=== PATIENT | male | born 1945 | race Two or more races ===

== ENCOUNTER 2025-10-03 09:45 | Outpatient (OUT) | payer MEDICARE, SELFPAY ==
--- OUTSIDE RECORDS SUMMARY | 2025-09-24 09:30 | XMS_ITS | Encounter Summary ---
Author Organization [facility] Address [address] [place] [address] Care Team Providers Care Drafter Patent Name Role Phone Tanna Leyva MD Primary Care Provider [phone] Tanna Leyva MD Unavailable Reason for Visit * Rehabilitation - Outpatient (Routine) - AuthorizedSpecialtyDiagnoses / ProceduresReferred By ContactReferred To ContactPhysical Therapy Diagnoses Gait disturbance Procedures OR OFFICE/OUTPATIENT [facility] 60 MINUTES Tanna Leyva MD [address] [place] [address] Phone: tel: fax: Alejandro Branch, PT [address] [place] [address] Phone: tel: fax: Referral IDStatusReasonStart DateExpiration DateVisits RequestedVisits [id number] Specialty Services Required [id number] Encounter Details DateTypeDepartmentCare Team (Latest Contact Info)Svpfktuupvy39/04/2025 9:30 AM ESTTreatment [facility] [place] [address] [place] [address] La Mccarthy PTA General weakness (Primary Dx); Gait disturbance; History of falling Social History Tobacco UseTypesPacks/DayYears UsedDateSmoking Tobacco: NeverSmokeless Tobacco: NeverAlcohol UseStandard Drinks/WeekCommentsNot Currently0 (1 standard drink = 0.6 oz pure alcohol)caffeine intake: 1-2 cups/dayPHQ-2AnswerDate RecordedPatient Health Questionnaire-2 [id number] and Gender InformationValueDate RecordedSex Assigned at BirthNot on fileLegal NpeZsxw5402/02/2023 7:36 PM EDT Gender IdentityNot on fileSexual OrientationNot on filedocumented as of this encounter Progress Notes * La MccarthyYESSENIA - 09/24/2025 9:30 AM EST Images from the original note were not included. Physical Therapy Physical Therapy Treatment Visit Patient Name: Chad Mcmahon Today's Date: 09/24/2025 Encounter Diagnoses Name Primary? General weakness Yes Gait disturbance History of falling Visit number: 38 Supervised time: 59 min Total time: 59 min Time in: 10:23 am Time out: 11:24 am Subjective Chad Mcmahon 80 y.o. male presents to physical therapy w/ chief c/o increased difficulty with all functional mobility and extensive fall history, ~2 falls per pt in the last couple weeks, admits to trying to spread grass seed in yard and using wheel grand ronde tribes/tools both causing falls. I am very familiar with Chad and his family and they have had issues for years helping to keep him safe around the home as he continues to try to do things he should not with age and mobility issues. 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 No injuries. Aggravating Factors: ADLs/self care, trying to do yard work and higher level ADLs, uneven ground. Precautions: Fall risk/history, lack of safety awareness/compliance. Objective Gait: parkinsons like gait, mod to severe shuffling nicolasa, decreased jesus, step height/length nicolasa also lacking TKE in stance nicolasa with slight FW flexed posture, No AD. Has been resistant to suggestive use in the past. Balance: NS on ground ok, EC min sway but up to 30 sec. NS on foam mod to severe sway unable to maintain greater than 10 sec per bout today without UE assist. 30 sec chair rise test= 6 reps TUG= 24 sec without AD, CGA. (At IE) Treatment Interventions Therapeutic Exercise:x 42 min total per ELLA grid, strength, endurance, flexibility demo and verbal cues for correct technique. Gait Training: prn for improved quality and reduced fall risk Neuromuscular re-education: x17 min balance work both static and dynamic as able to help reduce fall risk, CGA for all with gait belt. FW january/ walk Assessment/Plan General weakness, balance issues, impaired gait, decreased awareness of safety/limitations causing increased fall risk with extensive fall history. Unsteady throughout today. Continued good recall of ELLA with min VC for proper execution. Min post sway with foam balance EC. Trial EO on foam today with head turn/nod. No LOB. Pt demo many LOB during side stepping to the R today. Max VC for hips and toes facing forward, very difficult for neuromuscular facilitation side stepping to right. Also initiated multidirectional ambulation throughout clinic including turns and up and over steps, apprehensive and slow with turns but no LOB, CGA. Continued as tolerated. PT Goals: 1) pt will demo improved functional LE strength per 30 sec chair rise test greater than or equal to9 reps with UE assist from chair prn. 2) pt will demo improved functional mobility, gait, balance, decreased fall risk per TUG less than or equal to 14 sec 3) pt will demo at least min improved quality of gait for improved safety and decreased fall risk 4) pt will be ind with HEP for maintenance at DC from PT Cosigned by Alejandro Branch PT at 09/24/2025 12:06 PM EST documented in this encounter Plan of Treatment DateTypeDepartmentCare Team (Latest Contact Info)Nrpoyeqdeyk40/26/2025 10:20 AM ESTOffice Visit [facility] [id number] [place] [address] Tanna Leyva MD [address] [facility] [place] [address] 12/04/2025 10:00 AM ESTOffice Visit [facility] [address] [facility] [place] [phone] Tanna Leyva MD [address] [facility] [place] [address] documented as of this encounter Goals GoalPatient Goal TypeAssociated ProblemsRecent ProgressPatient-Stated?Author Help patient manage antidepressant medication Care PlanPatient on antidepressant monitoring planNoTanna Leyva, MDdocumented as of this encounter Visit Diagnoses Diagnosis General weakness- Primary Other malaise and fatigue Gait disturbance Abnormality of gait History of falling documented in this encounter Additional Health Concerns Active ProblemsNoted DateDiagnosed DatePatient on antidepressant monitoring plan 05/30/2024ssessmentNoted TimePHQ-9 Depression Total Score: 10003/07/2024 10:00 AM EDTdocumented as of this encounter Care Teams Team MemberRelationshipSpecialtyStart DateEnd Date Tanna Leyva MD [address] [facility] [place] [address] PCP - GeneralFamily Medicine03/29/23 Tanna Leyva MD [address] [facility] [place] [address] PCP - [employer]12/22/20documented as of this encounter
--- OUTSIDE RECORDS SUMMARY | 2025-09-30 13:45 | XMS_ITS | Encounter Summary ---
Author Organization [facility] Address [address] [place] [address] Care Team Providers Care Municipal Maintenance Worker Name Role Phone Tanna Leyva MD Primary Care Provider [phone] Tanna Leyva MD Unavailable Encounter Details DateTypeDepartmentCare Team (Latest Contact Info)Jmmsbnvfzgv96/10/2025 1:45 PM ESTAncillary Procedure [facility] [address] [facility] [address] [facility] [place] [address] Injury of left thumb, initial encounter Social History Tobacco UseTypesPacks/DayYears UsedDateSmoking Tobacco: NeverSmokeless Tobacco: NeverAlcohol UseStandard Drinks/WeekCommentsNot Currently0 (1 standard drink = 0.6 oz pure alcohol)caffeine intake: 1-2 cups/dayPHQ-2AnswerDate RecordedPatient Health Questionnaire-2 [id number] and Gender InformationValueDate RecordedSex Assigned at BirthNot on fileLegal EhrJmjk1002/02/2023 7:36 PM EDT Gender IdentityNot on fileSexual OrientationNot on filedocumented as of this encounter Plan of Treatment DateTypeDepartmentCare Team (Latest Contact Info)Wwdvwufxddx31/26/2025 10:20 AM ESTOffice Visit [facility] [address] [facility] [address] Tanna Leyva MD [address] [facility] [address] [place], [place] [id number] 12/04/2025 10:00 AM ESTOffice Visit [facility] [address] [facility] [place] [address] Tanna Leyva MD [address] [facility] [address] [place], [place] [id number] documented as of this encounter Goals GoalPatient Goal TypeAssociated ProblemsRecent ProgressPatient-Stated?Author Help patient manage antidepressant medication Care PlanPatient on antidepressant monitoring Tanna Peña MDdocumented as of this encounter Procedures Procedure NamePriorityDate/TimeAssociated DiagnosisCommentsXR FINGERS 2+ VIEWS FOSYYhicran36/10/2025 3:50 PM EST Injury of left thumb, initial encounter documented in this encounter Results * XR fingers 2+ views left (09/30/2025 3:50 PM EST)Anatomical RegionLaterality ModalityUpper Extremities, FingersLeftRadiographic ImagingSpecimen (Source) Anatomical Location / LateralityCollection Method / VolumeCollection Time Received Time10/01/2025 3:47 PM EST Impressions 10/01/2025 3:50 PM EST Fracture dislocation involving the thumb IP joint as discussed. Possible nondisplaced fracture involving the base of the thumb proximal phalanx as discussed. ELECTRONICALLY SIGNED BY: Douglas Crowder MD Narrative 10/01/2025 3:50 PM EST EXAMINATION/TECHNIQUE: XR FINGERS 2+ VIEWS LEFT HISTORY: Crushing injury of the thumb. 4 x 4 fell on the thumb. COMPARISON: Radiographs 01/02/2020. RESULT: Dislocation at the thumb IP joint with the distal phalanx displaced dorsally with multiple densities near this site suggestive of multiple small fracture fragments. There is also some irregularity involving the base of the thumb proximal phalanx near the MCP joint, possible nondisplaced fracture orcould be chronic from degenerative changes. Advanced degenerative changes at the thumb CMC joint with subchondral sclerosis. Areas of soft tissue edema. Procedure Note Douglas Crowder MD - 10/01/2025 EXAMINATION/TECHNIQUE: XR FINGERS 2+ VIEWS LEFT HISTORY: Crushing injury of the thumb. 4 x 4 fell on the thumb. COMPARISON: Radiographs 01/02/2020. RESULT: Dislocation at the thumb IP joint with the distal phalanx displaceddorsally with multiple densities near this site suggestive of multiplesmall fracture fragments. There is also some irregularity involving thebase of the thumb proximal phalanx near the MCP joint, possiblenondisplaced fracture or could be chronic from degenerative changes.Advanced degenerative changes at the thumb CMC joint with subchondralsclerosis. Areas of soft tissue edema. IMPRESSION: Fracture dislocation involving the thumb IP joint as discussed. Possible nondisplaced fracture involving the base of the thumb proximalphalanx as discussed. ELECTRONICALLY SIGNED BY: Douglas Crowder MD Authorizing ProviderResult TypeResult StatusBreann Majors NPIMG XR PROCEDURES Final Result documented in this encounter Visit Diagnoses Diagnosis Injury of left thumb, initial encounter documented in this encounter Additional Health Concerns Active ProblemsNoted DateDiagnosed DatePatient on antidepressant monitoring plan 4AssessmentNoted TimePHQ-9 Depression Total Score: 10003/07/2024 10:00 AM EDTdocumented as of this encounter Care Teams Team MemberRelationshipSpecialtyStart DateEnd Date aTnna Leyva MD [address] [place] [address] PCP - GeneralFamily Medicine03/29/23 Tanna Leyva MD [address] [place] [address] PCP - [employer]12/22/20documented as of this encounter
--- OUTSIDE RECORDS SUMMARY | 2025-09-30 16:30 | XMS_ITS | Encounter Summary ---
Author Organization [facility] Address [address] [facility] [place] [address] Care Team Providers Care Resource Room Teacher Name Role Phone Tanna Leyva MD Primary Care Provider [phone] Tanna Leyva MD Unavailable Reason for Referral * Consultation (Routine) - AuthorizedSpecialtyDiagnoses / ProceduresReferred By ContactReferred To ContactOrthopaedic Surgery Diagnoses Closed dislocation of left thumb, initial encounter Closed avulsion fracture of phalanx of left thumb, initial encounter Pippa Vincent NP [address] [place] [address] Phone: tel: fax: Marco Antonio Mead MD [facility] Referrals ONLY fax: Referral IDStatusReasonStart DateExpiration DateVisits RequestedVisits [id number] Specialty Services Required Reason for Visit * ReasonCommentsthumb pain Encounter Details DateTypeDepartmentCare Team (Latest Contact Info)Fvdjalhondx11/10/2025 4:30 PM ESTOffice Visit [facility] [address] [place] [address] Pippa Vincent NP [address] [facility] [place] [address] Closed dislocation of left thumb, initial encounter (Primary Dx); Closed avulsion fracture of phalanx of left thumb, initial encounter Social History Tobacco UseTypesPacks/DayYears UsedDateSmoking Tobacco: NeverSmokeless Tobacco: NeverAlcohol UseStandard Drinks/WeekCommentsNot Currently0 (1 standard drink = 0.6 oz pure alcohol)caffeine intake: 1-2 cups/dayPHQ-2AnswerDate RecordedPatient Health Questionnaire-2 [id number] and Gender InformationValueDate RecordedSex Assigned at BirthNot on fileLegal UkgRdhw1402/02/2023 7:36 PM EDT Gender IdentityNot on fileSexual OrientationNot on filedocumented as of this encounter Progress Notes * Pippa Vincent NP - 09/30/2025 4:30 PM ESTAssociated Order(s): Orthopedic Injury Treatment - Fracture Post-Procedure Diagnose(s): Closed dislocation of left thumb, initial encounter Subjective ?Quick Links Last Note in Specialty Snapshot Edit RFV/CC Edit Screenings Current Meds Patient ID: Chad Mcmahon is a 80 y.o. male who presents for thumb pain. HPI History of Present Illness The patient presents for evaluation of a left thumb injury. He sustained an injury to his left thumb while working in his shed, specifically when a 4 x 4 pieceof wood fell on him, causing him to fall and land on his buttocks. He reports no head trauma duringthe incident. He also mentions a previous fall from a ladder, which resulted in right shoulder painthat has since improved. It is noted that he experienced two falls yesterday and one today. A consultation with his passenger coach driver is scheduled for Tuesday due to concerns about his deteriorating balance. Xray of his left thumb has been completed and shows a left thumb dislocation of the distal phalanx and an avulsion fracture. ?Quick Review Review Full History Edit History Meds - Current Medications[1] --- PMH - Seasonal allergies Seizures (HCC) Objective ?Quick Links Add Vitals Timeline (Adult) Labs Imaging Results Review Trend Vitals ?? Avoid pulling in long tables of results. Comment on relevant results to support your medical decision making. There were no vitals taken for this visit. Physical Exam Vitals and nursing note reviewed. Constitutional: Appearance: Normal appearance. HENT: Head: Normocephalic and atraumatic. Cardiovascular: Rate and Rhythm: Normal rate and regular rhythm. Pulses: Normal pulses. Heart sounds: Normal heart sounds. Pulmonary: Effort: Pulmonary effort is normal. No respiratory distress. Breath sounds: Normal breath sounds. No stridor. No wheezing, rhonchi or rales. Musculoskeletal: Left hand: Tenderness and bony tenderness present. Decreased range of motion. Comments: Left thumb swelling and bruising noted, dislocation to left distal phalanx noted. Skin: General: Skin is warm and dry. Neurological: General: No focal deficit present. Mental Status: He is alert and oriented to person, place, and time. Psychiatric: Mood and Affect: Mood normal. Behavior: Behavior normal. Physical Exam Extremities: Good pulses Musculoskeletal: Dislocation and possible fractures of the left thumb. Swelling noted. ?Quick Links Full Problem List Allergy Cardiology Chronic Pain GI Thyroid Assessment & Plan Closed dislocation of left thumb, initial encounter Orders: Ambulatory referral to Orthopaedic Surgery; Future Closed avulsion fracture of phalanx of left thumb, initial encounter Orders: Ambulatory referral to Orthopaedic Surgery; Future Other orders Orthopedic Injury Treatment - Fracture Assessment & Plan 1. Left thumb dislocation: - The x-ray results indicate a dislocation at the proximal end of the left thumb, accompanied by potential fractures. - The thumb is swollen and bruised, and the patient is unable to move it. - A referral to Dr. Green, an orthopedic hand specialist, has been initiated for further evaluationand management. - The patient has been advised to apply ice to the affected area to manage swelling and bruising. Seoa-esc-clydxww analgesics such as Tylenol or ibuprofen can be used for pain management. The thumb should be kept immobilized until the specialist's appointment. If there is no communication from Dr. Green's office within the next few days, the patient should contact our office. PROCEDURE Procedure: Reduction of dislocated thumb completed by Dr. Hilario. - Procedural Discussion: Discussed the need to reduce the dislocated thumb, including the potentialneed for a nerve block. The patient was informed about the follow-up with an orthopedic hand specialist due to possible fractures. - Technique: Dr. Hilario performed the reduction of the dislocated thumb. - Dressing: An Jose wrap and a thumb splint were applied to stabilize the thumb. - Post-Procedural Discussion: The reduction was completed successfully. The patient was advised to ice the area, keep it elevated, and follow up with an orthopedic hand specialist. Orthopedic Injury Treatment - Fracture Date/Time: 09/30/2025 4:00 PM Performed by: Lucho Hilario MD Authorized by: Pippa Vincent NP Consent: Consent obtained: Verbal Consent given by: Patient Risks, benefits, and alternatives were discussed: yes Risks discussed: Pain Injury: Injury location: Finger Finger injury location: L thumb Finger fracture type: proximal phalanx fracture Pre-procedure details: Distal neurologic exam: Weakness Sedation: Sedation type: None Anesthesia: Anesthesia method: None Procedure details: Reduction successful: yes X-ray confirmed reduction: no Immobilization: Thumb splint placed with an jose wrap. Post-procedure details: Distal neurologic exam: Normal Distal perfusion: distal pulses strong Range of motion: normal Procedure completion: Tolerated [1] amiodarone (Pacerone) 200 MG tablet aspirin 81 MG chewable tablet clopidogrel (Plavix) 75 MG tablet divalproex (Depakote) 500 MG EC tablet Docusate Sodium (DSS) 100 MG capsule escitalopram (Lexapro) 20 MG tablet KLOR-CON 10 MEQ ER tablet midodrine (Proamatine) 5 MG tablet PHENobarbital (Luminal) 32.4 MG tablet solifenacin (VESIcare) 10 MG tablet torsemide (Demadex) 10 MG tablet triamcinolone (Kenalog) 0.1 % cream documented in this encounter Plan of Treatment DateTypeDepartmentCare Team (Latest Contact Info)Gytldxxlmmk60/26/2025 10:20 AM ESTOffice Visit [facility] [address] [place] [phone] Tanna Leyva MD [address] [place] [address] 12/04/2025 10:00 AM ESTOffice Visit [address] [place] [address] Tanna Leyva MD [address] [place] [address] NameTypePriorityAssociated DiagnosesOrder ScheduleAmbulatory referral to Orthopaedic SurgeryOutpatient ReferralRoutine Closed dislocation of left thumb, initial encounter Closed avulsion fracture of phalanx of left thumb, initial encounter Expected: 09/30/2025 (Approximate), Expires: 03/30/2026documented as of this encounter Goals GoalPatient Goal TypeAssociated ProblemsRecent ProgressPatient-Stated?Author Help patient manage antidepressant medication Care PlanPatient on antidepressant monitoring Tanna Peña, MDdocumented as of this encounter Procedures Procedure NamePriorityDate/TimeAssociated DiagnosisCommentsPR CLTX PHLNGL FX PROX/MIDDLE PX/F/T W/O MANJ OVGgqscsa17/10/2025 4:00 PM EST Closed dislocation of left thumb, initial encounter documented in this encounter Results * MS CLTX PHLNGL FX PROX/MIDDLE PX/F/T W/O MANJ EA (09/30/2025 4:00 PM EST) Pippa Padilla NP - 09/30/2025 4:00 PM EST Pippa Vincent NP 09/30/2025 5:05 PM Orthopedic Injury Treatment - Fracture Date/Time: 09/30/2025 4:00 PM Performed by: Lucho Hilario MD Authorized by: Pippa Vincent NP ?? Consent: ??Consent obtained: ??Verbal ??Consent given by: ??Patient ??Risks, benefits, and alternatives were discussed: yes ?Risks discussed: ??Pain Injury: ??Injury location: ??Finger ??Finger injury location: ??L thumb ??Finger fracture type: proximal phalanx fracture ?? Pre-procedure details: ??Distal neurologic exam: ??Weakness Sedation: ??Sedation type: ??None Anesthesia: ??Anesthesia method: ??None Procedure details: ??Reduction successful: yes ?X-ray confirmed reduction: no ?Immobilization: Thumb splint placed with an jose wrap. Post-procedure details: ??Distal neurologic exam: ??Normal ??Distal perfusion: distal pulses strong ?Range of motion: normal ?Procedure completion: ??Tolerated Authorizing ProviderResult TypeResult StatusBreann Majors NPIN CLINIC/BEDSIDE ORDERABLESFinal Result documented in this encounter Visit Diagnoses Diagnosis Closed dislocation of left thumb, initial encounter- Primary Closed avulsion fracture of phalanx of left thumb, initial encounter documented in this encounter Additional Health Concerns Active ProblemsNoted DateDiagnosed DatePatient on antidepressant monitoring plan 05/30/2024ssessmentNoted TimePHQ-9 Depression Total Score: 10003/07/2024 10:00 AM EDTdocumented as of this encounter Care Teams Team MemberRelationshipSpecialtyStart DateEnd Date Tanna Leyva MD [address] [place], [place] [id number] PCP - GeneralFavtly Medicine03/29/23 Tanna Leyva MD [address] [place] [address] PCP - [employer]12/22/20documented as of this encounter
--- OUTSIDE RECORDS SUMMARY | 2025-10-02 14:40 | XMS_ITS | Encounter Summary ---
Author Organization [facility] Address [address] [place] [address] Phone Care Team Providers Care Associate Data Scientist Name Role Phone Tanna Leyva MD Primary Care Provider [phone]- [phone] Reason for Referral * Consultation (Routine) - AuthorizedSpecialtyDiagnoses / ProceduresReferred By ContactReferred To ContactCardiology Diagnoses Persistent atrial fibrillation (Multi) Procedures Follow Up In Cardiology Tessy Sequeira MD [address] [place] [address] 2, [address] [address] Phone: tel: fax: Tessy Sequeira MD 703 [facility] 2, [address] [address] Phone: tel: fax: Referral IDStatusReasonStart DateExpiration DateVisits RequestedVisits [id number]/12/202511/12/202611 * Cardiovascular (Routine) - AuthorizedSpecialtyDiagnoses / ProceduresReferred By ContactReferred To Contact Diagnoses Persistent atrial fibrillation (Multi) Procedures ECG 12 Lead Tessy Sequeira MD [address] [place] [address] 2, [address] [address] Phone: tel: fax: Referral IDStatusReasonStart DateExpiration DateVisits RequestedVisits [id number]/12/202511/12/202611 * PFT (Routine) - Pending ReviewSpecialtyDiagnoses / ProceduresReferred By ContactReferred To Contact Diagnoses Persistent atrial fibrillation (Multi) High risk medication use Procedures Complete Pulmonary Function Test (Spirometry/DLCO/Lung Volumes) Tessy Sequeira MD [address] [facility] 2, [address] [place] [address] Phone: tel: fax: Referral IDStatus[facility] DateExpiration DateVisits RequestedVisits [id number] * Imaging (Routine) - AuthorizedSpecialtyDiagnoses / ProceduresReferred By ContactReferred To ContactRadiology Diagnoses Persistent atrial fibrillation (Multi) High risk medication use Procedures XR chest 2 views Tessy Sequeira MD [address] [facility] [facility] 2, [address] [address] Phone: tel: fax: Referral IDStatus[facility] DateExpiration DateVisits RequestedVisits [id number] Perform Procedure Reason for Visit * ReasonCommentsFollow-up6 month Follow up for Atrial Fibrillation * Consultation (Routine) - AuthorizedSpecialtyDiagnoses / ProceduresReferred By ContactReferred To ContactCardiology Diagnoses Presence of Watchman left atrial appendage closure device Procedures Follow Up In Cardiology Tessy Sequeira MD [address] [facility] 2, [address] [address] Phone: tel: fax: Tessy Sequeira MD [address] [facility] 2, [address] [address] Phone: tel: fax: Referral IDStatusReasonStart DateExpiration DateVisits RequestedVisits [id number]/24/20253/ Encounter Details DateTypeDepartmentCare Team (Latest Contact Info)Gmxaxbqjfqn68/12/2025 2:40 PM ESTOffice Visit [facility] 703 [facility] [address] [place] [address] Tessy Sequeira MD 703 [facility] 2, [address] [place] [address] Presence of Watchman left atrial appendage closure device; Persistent atrial fibrillation (Multi); High risk medication use; Stage 3b chronic kidney disease (Multi); Never smoked any substance; BMI 24.0-24.9, adult; At risk for falls Discharge Disposition: Home Social History Tobacco UseTypesPacks/DayYears UsedDateSmoking Tobacco: NeverSmokeless Tobacco: NeverAlcohol UseStandard Drinks/WeekCommentsNever0 (1 standard drink = 0.6 oz pure alcohol)Sex and Gender InformationValueDate RecordedSex Assigned at Not on fileLegal BqlLvxx7612/02/2022 9:24 AM ESTGender IdentityNot on fileSexual OrientationNot on filedocumented as of this encounter Last Filed Vital Signs Vital SignReadingTime TakenCommentsBlood Ekwgvlaw482/ 2:45 PM EST Cmhnp079410/02/2025 2:45 PM ESTTemperature--Respiratory Rate--Oxygen Saturation-- Inhaled Oxygen Concentration--Pnwgya55.7 kg (189 lb)10/02/2025 2:45 PM ESTHeight 188 cm (6' 2 )10/02/2025 2:45 PM ESTBody Mass Index24.27112/02/2024 2:45 PM EST documented in this encounter Functional Status * BPAnswerDate of AydzadzbkrGyhfvs319/8210/02/2025 2:45 PM Angie Sam CMA * PulseAnswerDate of JshevxqqzmOtphqt2759/12/2025 2:45 PM Angie Sam CMA * Communicable Disease ScreeningQuestionAnswerDate of AssessmentAuthorDo you have any of the following new or worsening symptoms?None of these10/02/2025 2:32 PM Tayler Walton documented as of this encounter Patient Instructions * Patient Instructions* Nadya Cotton LPN - 10/02/2025 2:40 PM EST Please bring all medicines, vitamins, and herbal supplements with you when you come to the office. Prescriptions will not be filled unless you are compliant with your follow up appointments or have a follow up appointment scheduled as per instruction of your physician. Refills should be requested at the time of your visit. Amiodarone follow up per routine * Attachments The following attachments cannot be sent through Care Everywhere. * Preventing Falls ED ([place]) documented in this encounter Progress Notes * Tessy Sequeira MD - 10/02/2025 2:40 PM EST HPI Patient is in the office for follow-up for paroxysmal atrial fibrillation which has been controlledon amiodarone, he is status post watchman's device implantation. He came with his son-in-law. He continues to have frequent falls at home and he has dementia and it is hard to convince him not to do things secondary to his falling down. Fortunately there have been no major injuries. He had his PFT and chest x-ray back in October 2024 which were normal. He had lab data 3 months ago that revealed stage IIIB chronic kidney disease. EKG today revealed normal sinus rhythm and normal ECG, cardiac and pulm examinations were normal. Assessment/recommendations: 1-paroxysmal atrial fibrillation, currently on amiodarone and in sinus rhythm . Amiodarone surveillance testing have demonstrated no toxicity and will continue to do testing as per protocol. Reviewedwith the patient and his family his last PFT and chest x-ray from last October which came back normal. 2-status post watchman's device implantation March 2024 at [facility], continue aspirin 3-recurrent falls due to imbalance and orthostatic hypotension, encouraged the patient minimize activities that place him at risk. He is following with neurology. 4-history of lower extremity edema on torsemide and potassium. stable 5-history of orthostatic hypotension, currently on midodrine and his blood pressure is acceptable. No changes are needed 6-mild case of dementia but stable. 7-nuclear stress test 2021 in [place] was normal. 8- stage IIIb chronic kidney disease, no progression has been noticed, last creatinine 1.6 mg/dL with GFR 42 mL/min as of May 2025. 10-high risk medication with amiodarone therapy. Surveillance testing is being ordered. ROS Review of system was remarkable for imbalance and frequent falls Vitals: 10/02/25 1445 BP: 118/82 BP Location: Left arm Patient Position: Sitting Pulse: 63 Weight: 85.7 kg (189 lb) Height: 1.88 m (6' 2 ) EKG done in office today Objective Physical Exam Constitutional: Appearance: Normal appearance. HENT: Nose: Nose normal. Neck: Vascular: No carotid bruit. Cardiovascular: Rate and Rhythm: Normal rate. Pulses: Normal pulses. Heart sounds: Normal heart sounds. Pulmonary: Effort: Pulmonary effort is normal. Abdominal: General: Bowel sounds are normal. Palpations: Abdomen is soft. Musculoskeletal: General: Normal range of motion. Cervical back: Normal range of motion. Right lower leg: No edema. Left lower leg: No edema. Skin: General: Skin is warm and dry. Neurological: General: No focal deficit present. Mental Status: He is alert. Psychiatric: Mood and Affect: Mood normal. Behavior: Behavior normal. Thought Content: Thought content normal. Judgment: Judgment normal. Allergies Oxybutynin Current Medications Current Outpatient Medications Medication Instructions amiodarone (PACERONE) 100 mg, oral, Daily aspirin 81 mg, oral, Daily divalproex (DEPAKOTE) 500 mg, 5 times daily midodrine (PROAMATINE) 5 mg, Every 12 hours PHENobarbital (LUMINAL) 32.4 mg, 3 times daily solifenacin (VESICARE) 10 mg, Daily torsemide (DEMADEX) 10 mg, oral, Daily Assessment/Plan 1. Presence of Watchman left atrial appendage closure device Follow Up In Cardiology 2. Persistent atrial fibrillation (Multi) Aspartate Aminotransferase Basic Metabolic Panel Thyroid Stimulating Hormone XR chest 2 views Complete Pulmonary Function Test (Spirometry/DLCO/Lung Volumes) ECG 12 Lead Follow Up In Cardiology Aspartate Aminotransferase Basic Metabolic Panel Thyroid Stimulating Hormone 3. High risk medication use Aspartate Aminotransferase Basic Metabolic Panel Thyroid Stimulating Hormone XR chest 2 views Complete Pulmonary Function Test (Spirometry/DLCO/Lung Volumes) Aspartate Aminotransferase Basic Metabolic Panel Thyroid Stimulating Hormone 4. Stage 3b chronic kidney disease (Multi) 5. Never smoked any substance 6. BMI 24.0-24.9, adult 7. At risk for falls Scribe Attestation By signing my name below, I Nadya HathawayTrina FIGUEROA , Scribe attest that this documentation has been prepared under the direction and in the presence of Tessy Sequeira MD. Provider Attestation - Scribe documentation All medical record entries made by the Scribe were at my direction and personally dictated by me. Ihave reviewed the chart and agree that the record accurately reflects my personal performance of the history, physical exam, discussion and plan. documented in this encounter Plan of Treatment DateTypeDepartmentCare Team (Latest Contact Info)Brfxlqcgplb51/17/2026 3:10 PM EDTOffice Visit [facility] [address] [phone] Tessy Sequeira MD 703 [facility] 2, [address] [address] NameTypePriorityAssociated DiagnosesOrder ScheduleAspartate AminotransferaseLab Routine Persistent atrial fibrillation (Multi) High risk medication use Expected: 11/01/2025, Expires: 01/30/2026asic Metabolic PanelLabRoutine Persistent atrial fibrillation (Multi) High risk medication use Expected: 11/01/2025, Expires: 01/30/2026Thyroid Stimulating HormoneLabRoutine Persistent atrial fibrillation (Multi) High risk medication use Expected: 11/01/2025, Expires: 01/30/2026XR chest 2 viewsImagingRoutine Persistent atrial fibrillation (Multi) High risk medication use Expected: 11/01/2025 (Approximate), Expires: 10/02/2026omplete Pulmonary Function Test (Spirometry/DLCO/Lung Volumes)PFTRoutine Persistent atrial fibrillation (Multi) High risk medication use Expected: 11/01/2025 (Approximate), Expires: 10/02/2026documented as of this encounter Procedures Procedure NamePriorityDate/TimeAssociated DiagnosisCommentsECG 12-LEADRoutine 10/02/2025 2:40 PM EST Persistent atrial fibrillation (Multi) documented in this encounter Results * ECG 12 Lead (10/02/2025 2:40 PM EST)Specimen (Source)Anatomical Location / LateralityCollection Method / VolumeCollection TimeReceived Time Narrative CPACS - 10/02/2025 3:01 PM EST Normal sinus rhythm, normal ECG Authorizing ProviderResult TypeResult StatusTessy Sequeira MDECG ORDERABLES Final ResultPerforming OrganizationAddressCity/State/ZIP CodePhone Number CPACS documented in this encounter Visit Diagnoses Diagnosis Presence of Watchman left atrial appendage closure device Persistent atrial fibrillation (Multi) Atrial fibrillation High risk medication use Stage 3b chronic kidney disease (Multi) Never smoked any substance BMI 24.0-24.9, adult At risk for falls Personal history of fall documented in this encounter Additional Health Concerns AssessmentNoted TimeA fall risk assessment has been completed for the patient 10/02/2025 2:46 PM ESTdocumented as of this encounter Care Teams Team MemberRelationshipSpecialtyStart DateEnd Date Tanna Leyva MD [address] [place] [address] PCP - GeneralFamily Medicine07/05/24documented as of this encounter
--- OUTSIDE RECORDS SUMMARY | 2025-10-02 14:40 | XMS_ITS | Encounter Summary ---
Author Organization [facility] Address [address] [place] [address] Phone Care Team Providers Care Equipment Specialist Name Role Phone Tanna Leyva MD Primary Care Provider [phone]- [phone] Reason for Referral * Consultation (Routine) - AuthorizedSpecialtyDiagnoses / ProceduresReferred By ContactReferred To ContactCardiology Diagnoses Persistent atrial fibrillation (Multi) Procedures Follow Up In Cardiology Tessy Sequeira MD [address] [place] [address] 2, [address] [address] Phone: tel: fax: Tessy Sequeira MD 703 [facility] 2, [address] [address] Phone: tel: fax: Referral IDStatusReasonStart DateExpiration DateVisits RequestedVisits [id number]/12/202511/12/202611 * Cardiovascular (Routine) - AuthorizedSpecialtyDiagnoses / ProceduresReferred By ContactReferred To Contact Diagnoses Persistent atrial fibrillation (Multi) Procedures ECG 12 Lead Tessy Sequeira MD [address] [place] [address] [address], [address] [address] Phone: tel: fax: Referral IDStatusReasonStart DateExpiration DateVisits RequestedVisits [id number]/12/202511/12/202611 * PFT (Routine) - Pending ReviewSpecialtyDiagnoses / ProceduresReferred By ContactReferred To Contact Diagnoses Persistent atrial fibrillation (Multi) High risk medication use Procedures Complete Pulmonary Function Test (Spirometry/DLCO/Lung Volumes) Tessy Sequeira MD [address] [facility] 2, [address] [place] [address] Phone: tel: fax: [facility]Status[facility] DateExpiration DateVisits RequestedVisits [id number] * Imaging (Routine) - AuthorizedSpecialtyDiagnoses / ProceduresReferred By ContactReferred To ContactRadiology Diagnoses Persistent atrial fibrillation (Multi) High risk medication use Procedures XR chest 2 views Tessy Sequeira MD [address] [facility] 2, [address] [address] Phone: tel: fax: Referral IDStatus[facility] DateExpiration DateVisits RequestedVisits [id number] Perform Procedure Reason for Visit * ReasonCommentsFollow-up6 month Follow up for Atrial Fibrillation * Consultation (Routine) - AuthorizedSpecialtyDiagnoses / ProceduresReferred By ContactReferred To ContactCardiology Diagnoses Presence of Watchman left atrial appendage closure device Procedures Follow Up In Cardiology Tessy Sequeira MD [address] 2, [address] [address] Phone: tel: fax: Tessy Sequeira MD [address] [facility] 2, [address] [address] Phone: tel: fax: Referral IDStatusReasonStart DateExpiration DateVisits RequestedVisits [id number]/24/20253/ Encounter Details DateTypeDepartmentCare Team (Latest Contact Info)Tqjgissohkg55/12/2025 2:40 PM ESTOffice Visit [facility] 703 [facility] [address] [place] [address] Tessy Sequeira MD 703 [facility] 2, [address] [place] [address] Presence of Watchman left atrial appendage closure [...] InformationValueDate RecordedSex Assigned at Not on fileLegal AzjSvjn1212/02/2022 9:24 AM ESTGender IdentityNot on fileSexual OrientationNot on filedocumented as of this encounter Last Filed Vital Signs Vital SignReadingTime TakenCommentsBlood Szngepbd720/ 2:45 PM EST Yfmtu966110/02/2025 2:45 PM ESTTemperature--Respiratory Rate--Oxygen Saturation-- Inhaled Oxygen Concentration--Ddlwmp95.7 kg (189 lb)10/02/2025 2:45 PM ESTHeight 188 cm (6' 2 )10/02/2025 2:45 PM ESTBody Mass Index24.27112/02/2024 2:45 PM EST documented in this encounter Functional Status * BPAnswerDate of IvfkfrsgymFblwsl431/8210/02/2025 2:45 PM Angie Sam CMA * PulseAnswerDate of HvyggqamojLmgyps6327/12/2025 2:45 PM Angie Sam CMA * Communicable [...] through Care Everywhere. * Preventing Falls ED ([place]) documented in this encounter Progress Notes * [...] post watchman's device implantation March 2024 at [facility], continue aspirin 3-recurrent falls due to imbalance and orthostatic hypotension, encouraged the patient minimize activities that place him at risk. He is following with neurology. 4-history of lower extremity edema on torsemide and potassium. stable 5-history of orthostatic hypotension, currently on midodrine and his blood pressure is acceptable. No changes are needed 6-mild case of dementia but stable. 7-nuclear stress test 2021 in [place] was normal. 8- stage IIIb chronic kidney [...] Plan of Treatment DateTypeDepartmentCare Team (Latest Contact Info)Abofyvyfdbo03/17/2026 3:10 PM EDTOffice Visit [facility] [address] [phone] Tessy Sequeira MD 703 [facility] 2, [address] [address] NameTypePriorityAssociated DiagnosesOrder ScheduleAspartate AminotransferaseLab Routine [...] DateEnd Date Tanna Leyva MD [address] [place] [address] PCP - GeneralFamily Medicine07/05/24documented as of this encounter
--- NOTE | 2025-10-03 | XR_ITS ---
[facility] [place] [id number] Patient Name: KALANI NO MRN: [id number] date: 1945 Sex: M Assigned Patient Location: [facility] Current Patient Location: [facility] Accession/Order Number: [id number] Exam Date: 10/03/2025 09:50 Report Date: 10/03/2025 10:40 At the request of: YONAS BURNS DO Procedure: XR hand LT min 3V LEFT HAND - 3 views CLINICAL DATA: Follow-up after reduction of left thumb dislocation COMPARISON: None AP, lateral and oblique views were obtained. There is a splint around the thumb. The bony structures are osteopenic. Bony ossicles are present around the distal interphalangeal joint of the thumb. Degenerative changes favored. A nondisplaced intra-articular fracture is not excluded at the base of the proximal phalanx of the thumb. There is also minor degenerative change at that site and moderate at the first carpal metacarpal joint. There are no significant soft tissue abnormalities. XR/XR hand LT min 3V IMPRESSION: OSTEOPENIA. BONY CHANGES AT THE THUMB, DESCRIBED. THERE ARE NO PRIORS FOR CORRELATION. Impression dictated by: Kiana Alberto M.D. 10/03/2025 10:40 AM Dictation Location: [place] [address] Electronically authenticated by: [id number] Y Date: 10/03/2025 10:40
--- OUTSIDE RECORDS SUMMARY | 2025-10-03 08:02 | XMS_ITS | Clinical Summary ---
Author Organization [facility] Address [address] [place] [address] Care Team Providers Care Bite Block Maker Name Role Phone Unavailable Primary Care Provider Unavailabl e Social History Tobacco UseTypesPacks/DayYears UsedDateSmoking Tobacco: Never AssessedUT Safety & EnvironmentAnswerDate RecordedFear of Current or Ex-PartnerNot on file 01/12/2024Emotionally AbusedNot on file01/12/2024hysically AbusedNot on file 01/12/2024Sexually AbusedNot on file01/12/2024hysically or Sexually AbusedNot on file01/12/2024Sex and Gender InformationValueDate RecordedSex Assigned at BirthNot on fileLegal VpmBaru1107/06/2022 11:39 AM EDTGender IdentityNot on file Sexual OrientationNot on file Plan of Treatment Not on file
--- OUTSIDE RECORDS SUMMARY | 2025-10-03 08:02 | XMS_ITS | Clinical Summary ---
Author Organization [facility] Address [address] [place] [address] Phone Care Team Providers Care Purchasing Internship Name Role Phone Tanna Leyva MD Primary Care Provider [phone] Allergies Active AllergyReactionsCriticalityNoted VysvRugguidyJueyasuwoqXhudIqb47/24/2023 Medications MedicationSigDispense QuantityRefillsLast FilledStart DateEnd DateStatus midodrine (Proamatine) 5 mg tablet Take 1 tablet (5 mg) by mouth every 12 hours.07/23/2023ctive PHENobarbitaL (Luminal) 32.4 mg tablet Take 1 tablet (32.4 mg) by mouth 3 times a day.09/21/2023ctive solifenacin (VESIcare) 10 mg tablet Take 1 tablet (10 mg) by mouth once daily.08/20/2023ctive aspirin 81 mg chewable tablet Indications:Presence of Watchman left atrial appendage closure deviceChew 1 tablet (81 mg) once daily. 90 tablet 4Active torsemide (Demadex) 10 mg tablet Indications:Paroxysmal atrial fibrillation (Multi)TAKE 1 TABLET BY MOUTH EVERY DAY 90 tablet 5Active divalproex (Depakote) 500 mg EC tablet Take 1 tablet (500 mg) by mouth 5 times a day. Do not crush, chew, or split. Active amiodarone (Pacerone) 200 mg tablet Indications:Atrial fibrillation, unspecified type (Multi)Take 0.5 tablets (100 mg) by mouth once daily. 45 tablet 5Active escitalopram (Lexapro) 20 mg tablet Take 1.5 tablets (30 mg) by mouth once daily.Discontinued (Therapy completed) potassium chloride CR 10 mEq ER tablet Take 1 tablet (10 mEq) by mouth once daily. Do not crush, chew, or split. 10/02/2025Discontinued(Therapy completed) Active Problems ProblemNoted DateDiagnosed DateStage 3b chronic kidney qrctmfn4910/02/2025MI 24.0-24.9, adult07/05/2024Never smoked any fzxxkpzes17/15/2024resence of Watchman left atrial appendage closure pzektb4603/22/2024-fib12/27/2023Sinus /06/8909Leyqhpjxvdx92/06/2024High risk medication use12/27/2023t risk for falls10/14/2023 Resolved Problems ProblemNoted DateDiagnosed DateResolved DateAtrial fibrillation, unspecified typehronic atrial mwgapjazijeu05 Encounters DateTypeDepartmentCare YxufNsjlkklxyvk12/12/2025 2:40 PM ESTOffice Visit [address] [phone] Tessy Sequeira MD Presence of Watchman left atrial appendage closure device; Persistent atrial fibrillation (Multi); High risk medication use; Stage 3b chronic kidney disease (Multi); Never smoked any substance; BMI 24.0-24.9, adult; At risk for falls Discharge Disposition: Home10/02/20250621Lrdkrg67/09/2025Refill [address] [phone] Tessy Sequeira MD Atrial fibrillation, unspecified type (Multi)from Last 3 Months Immunizations ImmunizationAdministration DatesNext DueFlu vaccine, quadrivalent, high-dose, preservative free, age 65y+ (FLUZONE)08/14/2025,10/28/2023Flu vaccine, trivalent, preservative free, HIGH-DOSE, age 65y+ (Fluzone)09/25/2024,10/28/2023 ,10/14/2020,10/30/2019,08/31/2018,12/19/2017Influenza, Potaywgdsuh14/12/2015 Influenza, intradermal, quadrivalent, preservative free10/02/2015Influenza, seasonal, zsqiljntvo85/14/2013Pneumococcal Conjugate PCV 7112/17/2011Pneumococcal conjugate vaccine, 13-valent (PREVNAR 13)04/08/2016Pneumococcal polysaccharide vaccine, 23-valent, age 2 years and older (PNEUMOVAX 23)10/17/2012,11/21/2011 Tdap vaccine, age 7 year and older (BOOSTRIX, ADACEL)05/25/2023,06/01/2017 Family History Medical HistoryRelationNameCommentsHeart diseaseBrotherHeart attackFatherHeart diseaseFathercongenital abnFathermalignant neoplasmFatherRelationNameStatus CommentsBrotherFather Social History Tobacco UseTypesPacks/DayYears UsedDateSmoking Tobacco: NeverSmokeless Tobacco: Never Tobacco Cessation:Counseling Given: Not Answered Alcohol UseStandard Drinks/WeekCommentsNever0 (1 standard drink = 0.6 oz pure alcohol)Sex and Gender InformationValueDate RecordedSex Assigned at BirthNot on fileLegal OqrGzrf5812/02/2022 9:24 AM ESTGender IdentityNot on fileSexual OrientationNot on file Last Filed Vital Signs Vital SignReadingTime TakenCommentsBlood Kcpcddvt315/8210/02/2025 2:45 PM EST Khhho135310/02/2025 2:45 PM ESTTemperature--Respiratory Nfkf918903/23/2024 9:57 AM EDTOxygen Fihjnkygcf85%03/23/2024 9:57 AM EDTInhaled Oxygen Concentration-- Smaoxp25.7 kg (189 lb)10/02/2025 2:45 PM PYOVaxcbj340 cm (6' 2 )10/02/2025 2:45 PM ESTBody Mass Index24.27112/02/2024 2:45 PM EST Plan of Treatment DateTypeDepartmentCare Team (Latest Contact Info)Rhkzgxyqxib42/17/2026 3:10 PM EDTOffice Visit [facility] [address] [facility] [address] [place] [address] Tessy Sequeira MD [address] [facility] [address] [place] [address] Health MaintenanceDue DateLast DoneCommentsLipid Panel3CKD: Urine Protein Yosqttsfr12/17/1962Zoster Vaccines (1 of 2)2RSV High Risk: (Elderly (60+) or Population) (1 - 1-dose 75+ series)2018Diabetes Gculnxqlh43/26/376367/TSH Level504/4COVID-19 Vaccine ( season)/08/2021, 01/21/2021, 12/24/2020Medicare Annual Wellness Visit (AWV)603/, 03/07/2024, 3DTaP/Tdap/Td Vaccines (3 - Td or Tdap)/03/2023, 06/01/2017Pneumococcal Vaccine Ycxsctoxd84/19/2016, 10/17/2012, 10/17/2012, Additional history existsWelcome to Medicare UosmsQbjyjktzoqyl25/20/2025, 03/07/2024, 01/27/2023Influenza Vaccine Sgoimiftg37/24/2025, 09/25/2024, 10/28/2023, Additional history existsHIB VaccinesAged OutNo longer eligible based on patient's age to complete this topic HPV VaccinesAged OutNo longer eligible based on patient's age to complete this topicHepatitis A VaccinesAged OutNo longer eligible based on patient's age to complete this topicHepatitis B VaccinesAged OutNo longer eligible based on patient's age to complete this topicIPV VaccinesAged OutNo longer eligible based on patient's age to complete this topicMeningococcal VaccineAged OutNo longer eligible based on patient's age to complete this topicRotavirus VaccinesAged Out No longer eligible based on patient's age to complete this topic Medical Devices ImplantedTypeAreaManufacturerDevice IdentifierShelf Expiration DateModel / Serial / LotDevice, Closure, 24mm Watchman Flx Laac - [id number] Implanted:Qty: 1 on 03/23/2024 by [facility]Other Cardiac ImplantN/A: Franchesca [id number] 01/11/[id number] / / [id number] Procedures Procedure NamePriorityDate/TimeAssociated DiagnosisCommentsECG 12-LEADRoutine 10/02/2025 2:40 PM EST Persistent atrial fibrillation (Multi) BASIC METABOLIC THXXUIkdcpmc04/26/2024 11:58 AM EDT Paroxysmal atrial fibrillation (Multi) High risk medication use ENKRlfuwvj86/26/2024 11:58 AM EDT Paroxysmal atrial fibrillation (Multi) High risk medication use from Last 3 Months or Most Recently Relevant to Health Maintenance Results * ECG 12 Lead (10/02/2025 2:40 PM EST)Specimen (Source)Anatomical Location / LateralityCollection Method / VolumeCollection TimeReceived Time Narrative CPACS - 10/02/2025 3:01 PM EST Normal sinus rhythm, normal ECG Authorizing ProviderResult TypeResult StatusTessy Sequeira MDECG ORDERABLES Final ResultPerforming OrganizationAddressCity/State/ZIP CodePhone Number [facility] * Thyroid Stimulating Hormone (03/16/2024 11:58 AM EDT)ComponentValueRef Range Test MethodAnalysis TimePerformed AtPathologist SignatureThyroid Stimulating Hormone3.070.44 - 3.98 mIU/L LAB IMMUNOASSAY METHOD 03/16/2024 5:[address] [facility] LABSpecimen (Source)Anatomical Location / Laterality Collection Method / VolumeCollection TimeReceived TimeBloodVenous blood specimen / UnknownVenipuncture / Aprvcih8303/16/2024 11:58 AM EDT03/16/2024 11:58 AM EDT Narrative [facility] - 03/16/2024 5:14 PM EDT TSH testing is performed using different testing methodology at [facility] than at other [facility]. Direct result comparisons should only be made within the same method. Authorizing ProviderResult TypeResult StatusTessy FIGUEROA BLOOD ORDERABLESFinal ResultPerforming OrganizationAddressCity/State/ZIP CodePhone Number [facility] [address] [facility] [place] [address] [place] [phone] * Basic Metabolic Panel (03/16/2024 11:58 AM EDT)ComponentValueRef RangeTest MethodAnalysis TimePerformed AtPathologist JbqdlibesUjbnleg1523 - 99 mg/dL LAB CHEMISTRY METHOD 03/16/2024 5:21 PM EDFIRST[facility] LCGLysxvp286929 - 145 mmol/L LAB CHEMISTRY METHOD 03/16/2024 5:21 PM [facility] LABPotassium4.43.5 - 5.3 mmol/L LAB CHEMISTRY METHOD 03/16/2024 5:21 PM ED[facility] SDGLicgtrcw14088 - 107 mmol/L LAB CHEMISTRY METHOD 03/16/2024 5:21 PM [facility] TOSJyzzgyxkldf6474 - 32 mmol/L LAB CHEMISTRY METHOD 03/16/2024 5:21 PM [facility] LABAnion Oly4481 - 20 mmol/L LAB CHEMISTRY METHOD 03/16/2024 5:21 PM [facility] LABUrea Zuxkfgat929 - 23 mg/dL LAB CHEMISTRY METHOD 03/16/2024 5:21 PM [facility] LABCreatinine1.180.50 - 1.30 mg/dL LAB CHEMISTRY METHOD 03/16/2024 5:21 PM [facility] HXHzLQK63>60 mL/min/1.73m*2 LAB CHEMISTRY METHOD 03/16/2024 5:21 PM [facility] LABComment: Calculations of estimated GFR are performed using the 2020 CKD-EPI Study Refit equation without therace variable for the IDMS-Traceable creatinine methods. https://jasn.asnjournals.org/content//ASN.3001870960 Calcium8.88.6 - 10.6 mg/dL LAB CHEMISTRY METHOD 03/16/2024 5:21 PM [facility] LABSpecimen (Source)Anatomical Location / Laterality Collection Method / VolumeCollection TimeReceived TimeBloodVenous blood specimen / UnknownVenipuncture / Eoowyho0003/16/2024 11:58 AM EDT03/16/2024 11:58 AM EDT Narrative Authorizing ProviderResult TypeResult StatusTessy Sequeira MDLAB BLOOD ORDERABLESFinal ResultPerforming OrganizationAddressCity/State/ZIP CodePhone Number [facility] [address] [facility] [place] [address] [place] [address] from Last 3 Months or Most Recently Relevant to Health Maintenance Insurance Advance Directives For more information, please contact: [phone] (Available ) * Full Code (Latest Code Status on File) Date ActivatedDate InactivatedComments03/23/2024 1:45 PMQuestionAnswerCommentsPlan of Care:* Code Status Discussion Completed Decision Maker:* Patient * Full Code Date ActivatedDate InactivatedComments03/23/2024 9:25 AM03/23/2024 1:45 PMQuestion AnswerCommentsPlan of Care:* Code Status Discussion Completed Decision Maker:* Patient Care Teams Team MemberRelationshipSpecialtyStart DateEnd Date Tanna Leyva MD [address] [place] [address] PCP - GeneralFamily Medicine07/05/24
--- OUTSIDE RECORDS SUMMARY | 2025-10-03 08:02 | XMS_ITS | Encounter Summary ---
Author Organization [facility] Address [address] [place] [address] Phone Care Team Providers Care Welcome Wagon Hostess Name Role Phone Tanna Leyva MD Primary Care Provider [phone] Encounter Details DateTypeDepartmentCare Team (Latest Contact Info)Erswoqkwywv77/12/2025Travel Social History Tobacco UseTypesPacks/DayYears UsedDateSmoking Tobacco: NeverSmokeless Tobacco: NeverAlcohol UseStandard Drinks/WeekCommentsNever0 (1 standard drink = 0.6 oz pure alcohol)Sex and Gender InformationValueDate RecordedSex Assigned at Not on fileLegal GytEavn5112/02/2022 9:24 AM ESTGender IdentityNot on fileSexual OrientationNot on filedocumented as of this encounter Functional Status * BPAnswerDate of QulnbcfrdvRvpsnz164/8210/02/2025 2:45 PM Angie Sam CMA * PulseAnswerDate of IbgxllnptkKicmja2911/12/2025 2:45 PM Angie Sam CMA * Communicable Disease ScreeningQuestionAnswerDate of AssessmentAuthorDo you have any of the following new or worsening symptoms?None of these10/02/2025 2:32 PM Rosio Waltone documented as of this encounter Plan of Treatment DateTypeDepartmentCare Team (Latest Contact Info)Pztuuavnsmj93/17/2026 3:10 PM EDTOffice Visit [facility] [address] [facility] [address] [place] [address] Tessy Sequeira MD [address] [facility] [address] [place] [address] documented as of this encounter Visit Diagnoses Not on filedocumented in this encounter Additional Health Concerns AssessmentNoted TimeA fall risk assessment has been completed for the patient 10/02/2025 2:46 PM ESTdocumented as of this encounter Care Teams Team MemberRelationshipSpecialtyStart DateEnd Date Tanna Leyva MD [address] [place] [address] PCP - GeneralFamily Medicine07/05/24documented as of this encounter
--- OUTSIDE RECORDS SUMMARY | 2025-10-03 08:02 | XMS_ITS | Clinical Summary ---
Author Organization [facility] Address [facility] [place] [address] Care Team Providers Care Corporate Executive Chef Name Role Phone Tanna Leyva MD Primary Care Provider [phone] Allergies Active AllergyReactionsCriticalityNoted DateCommentsOxybutyninHivesMedium 08/26/2021rednisoneOther (See Comments)04/25/2023RivaroxabanOther (See Comments)10/31/2023 Patients daughter states medication made him off balance/fall Medications MedicationSigDispense QuantityRefillsLast FilledStart DateEnd DateStatus PHENobarbitaL (LUMINAL) 32.4 mg tablet Indications:simple-partial epilepsyTake 1 tablet (32.4 mg total) by mouth 3 (three) times a day Indications: simple partial seizures. [facility] [place] 1 tablet ctive escitalopram (LEXAPRO) 20 mg tablet Take 1.5 tablets (30 mg total) by mouth in the morning.05/17/2022ctive amiodarone (PACERONE) 200 mg tablet 01/10/2023ctive midodrine (PROAMATINE) 5 mg tablet 01/10/2023ctive torsemide (DEMADEX) 10 mg tablet Take 1 tablet (10 mg total) by mouth daily.01/18/2023ctive acetaminophen (TYLENOL EXTRA STRENGTH) 500 mg tablet Take 2 tablets (1,000 mg total) by mouth every 6 (six) hours as needed for pain. 30 tablet 11/14/2023Active aspirin 81 mg chewable tablet Chew 1 tablet (81 mg total) and swallow in the morning.03/23/2024ctive divalproex (DEPAKOTE) 500 mg EC tablet Indications:Seizure disorder (CMS-HCC)TAKE 2 TABS (1,000 MG) EVERY MORNING, 1 TAB (500 MG) EVERY AFTERNOON, AND 2 TABS (1,000 MG) AT NIGHT 450 tablet 5Active Active Problems ProblemNoted DateDiagnosed DateWeakness of both quadriceps bsschxb4606/04/2025 Excessive daytime qhvvmlrqoy98/30/2023hronic kidney yosrjle1907/20/2023KI (acute kidney injury)01/11/20232374Clfezej33/21/2023Orthostatic hcscfejasfiurhh80/21/2023 Osteoarthritis of multiple dwmkst9209/08/2022Falls, csuddcp4409/08/2022plenomegaly 08/06/20227256Yryjfa22/03/2022ymptomatic hiqrwbguwgm47/02/2022Truncal ataxia 2Chronic giwtnqu2306/11/2021enign prostatic hyperplasia with lower urinary tract gtlymbvh67/16/2021 Overview (11/06/2024): 03/17/21: Lower urinary tract symptoms with urgency and urge incontinence. PVR 127 cc. Urine dipstick suggestive of an infection. Plan for culture. If culture negative will start anticholinergics. If positive will treat accordingly. Recheck 3-4 weeks 04/14/21: Put on oxybutynin xl 10 mg. Improved. Plan to continue. Recheck 6 months 08/26/21: Reaction with oxybutynin. Switched to VESIcare but recently ran out. Frequency and urgencysince then. UA neg. PVR 35. Will restart VESIcare 11/10/21: Improved symptoms with vesicare 10 mg 06/02/22: Persistent urgency, frequency, and nocturia. PVR 0. Discussed beta 3 agonist, but he declined. 03/22/23: Stable using vesicare 10 mg 03/27/24: ongoing issues with urgency despite VESIcare 10 mg. Plan to add Myrbetriq 50 mg. Will monitor bp at home. Recheck PVR 1 month 05/02/24: No improvement with Myrbetriq. He has not interested in additional treatment options. He will stop taking Myrbetriq and continue with VESIcare 11/06/24: Failed medical management for overactive bladder. Options discussed including Botox whichthey are not interested in due to the risk of retention and neurostimulator. They are going to consider and let me know if they would like to proceed Assessment & Plan (06/02/2022 9:37 AM EDT): He will call if he changes his mind otherwise we will see him back in 6 months with a PSA Assessment & Plan (08/26/2021 2:01 PM EDT): He is already scheduled to see Dr. Strong in October. I told him to call me sooner if any problems. Cardiac jdtedrnqln45/23/2020Marginal zone wyfclnzm84/06/2013Thrombocytopenia 02/24/2013OsteoarthritisLocalized edemaAbnormal MRI, lumbar spine Overview (06/02/2017): DDD, small spinal canal, herniated disc, foraminal stenosis Prostate cancer Overview (11/06/2024): 08/12/20: Progressive luts. pvr 183 cc. Just started tamsulosin. Plan to continue to see if benefit.If none can try double dose. If that fails plan cysto 08/27/20: No improvement with tamsulosin. PVR 55. He will increase the dose to 0.8 mg. We will schedule cysto, but can cancel if symptoms resolve with the higher dose. 09/09/20: Experienced hypotension with tamsulosin 0.8 mg with no improvement lower urinary tract symptoms. Cysto with annular strictures which still easily accommodated flexible cystoscope. Bilobar hyperplasia. Discussed TURP with he and his daughter in postop. Risks as outlined in the consent discussed. 02/03/21: Turp 02/17/21: Final path: Hanane grade 3+4 = 7 (grade group 2), involving ~25 of total ~225 submitted prostate chips (involving ~15% volume of the submitted tissue. Plan to check psa in 3-4 weeks. 03/16/21: PSA 1.49. Discussed prostate cancer in the natural history of. Given his normal PSA and small volume disease plan to follow 11/10/21: PSA 2.22.. Plan recheck 6 months 06/02/22: PSA 1.15. Recheck in 6 months 03/22/23: PSA 1.14 03/27/24: check psa 05/02/24: PSA was 1.77 but on recheck back down to 1.36. Recheck in 6 months 11/06/2024: PSA remained stable and low. Plan to recheck 6 months, return visit 1 year Assessment & Plan (06/02/2022 9:36 AM EDT): He wants to continue with active surveillance Resolved Problems ProblemNoted DateDiagnosed DateResolved DateSOB (shortness of breath)06/11/2021 06/11/2021 Encounters DateTypeDepartmentCare StxcLynslhjpnxq09/25/2025Telephone [facility] Department of [facility] [address] [facility] [address] [place] [phone] [place] Officefrom Last 3 Months Immunizations ImmunizationAdministration DatesNext DueInfluenza High Dose Preservative Free IM 10/14/2020,10/30/2019,08/31/2018,12/19/2017Influenza, Im Trivalent Preservative 09/03/2013Influenza, Intradermal (Pf)10/02/2015Influenza, Leiiyzpwwld04/12/2015 Pneumococcal Qqvmzsgey85/27/2012Pneumococcal Conjugate 13-Rgqwoo0904/08/2016 Pneumococcal Ibosisxsoltbus18/27/2012,11/21/2011Tdap05/25/2023,06/01/2017 Family History Medical HistoryRelationNameCommentsHeart diseaseBrotherSleep apneaDaughter RelationNameStatusCommentsBrotherDaughterFatherDeceasedMotherDeceased Social History Tobacco UseTypesPacks/DayYears UsedDateSmoking Tobacco: NeverSmokeless Tobacco: Never Tobacco Cessation:Counseling Given: Not Answered Alcohol UseStandard Drinks/WeekCommentsNot Currently0 (1 standard drink = 0.6 oz pure alcohol)PHQ-2AnswerDate RecordedTotal Bhovt0064ChildcareAnswerDate IolpuamaRinlhvambXqtzwuv90/12/2019EmploymentAnswerDate RecordedEmploymentUnknown 05/02/2019Hunger ScreeningAnswerDate RecordedWithin the past 12 months we worried whether our food would run out before we got money to buy more.Never True11/06/2024Within the past 12 months the food we bought just didn't last and we didn't have money to get more.Never True11/06/2024urpose - LifeAnswerDate RecordedI have a purpose and direction in my life.Strongly Agree02/03/2021ex and Gender InformationValueDate RecordedSex Assigned at BirthNot on fileLegal FrpKdut1806/26/2015 11:28 AM EDTGender IdentityNot on fileSexual OrientationNot on file Last Filed Vital Signs Vital SignReadingTime TakenCommentsBlood Oiwejitu700/5707 9:55 AM EDT Gzdsn2146/18/2025 9:55 AM TCWQmxgkovdpxl85.3 ??C (97.4 ??F)06/07/2025 9:55 AM EDTRespiratory Bdos606706/07/2025 9:55 AM EDTOxygen Xsgddmzcdh43%06/07/2025 9:55 AM EDTInhaled Oxygen Concentration--Wlduwg37.1 kg (192 lb)06/19/2025 10:56 AM DTOFuxbmv210 cm (6' 2.02 )06/07/2025 9:55 AM EDTBody Mass Index24.64006/07/2025 9:55 AM EDT Plan of Treatment DateTypeDepartmentCare Team (Latest Contact Info)Vsbkbtwvwce21/25/2025 4:00 PM ESTOffice Visit [facility] [place] [address] Jin Gracia MD [address] [place] [address], [facility] [address] [place] [address] 10/29/2025 2:00 PM ESTAppointment [facility] [address] [place] [phone] 11/26/2025 1:00 PM ESTOffice Visit [facility] [address] [place] [address] [address] Rudy Strong MD [facility] [place], [place] [address] 01/02/2026 1:00 PM ESTOffice Visit [facility] - Medical Oncology [address] [place] [address] [place] [address] [place] [address] [address] [place] [id number] Health MaintenanceDue DateLast DoneCommentsZoster (Shingles) Vaccine (1 of 2) 1962Fall Risk Umsznruqy98/17/2008RSV ( or age 60+ yrs) (1 - 1-dose 75+ series)2018COVID-19 Vaccine (2024- season)/08/2021, 01/21/2021, 12/24/2020Influenza Bhhawwk64/03/2024, 10/28/2023, 10/14/2020, Additional history existsDepression Xuyatpwva06/ Tobacco Esjjhbwbq66/03/2025DTaP,Tdap and Td Vaccines (3 - Td or Tdap) /03/2023, 06/01/2017 Goals GoalPatient Goal TypeAssociated ProblemsRecent ProgressPatient-Stated?Author <enter goal here> Liseth Jacome LSW Note: Evaluation of progress towards goal: plan home self care with family support Medical Devices ImplantedTypeAreaManufacturerDevice IdentifierShelf Expiration DateModel / Serial / Parris 4.75 - Sna - [id number] Implanted:Qty: 2 on 08/14/2018 [facility] PjilhuzxNaxpade73/31/[id number] / NA / [id number] Insurance Advance Directives TypeDate RecordedPatient RepresentativeExplanationDNR Physician Order06/30/2022 8:54 AMLiving Will06/30/2022 7:47 AM * Modified Code Status [place] (Latest Code Status on File) Date ActivatedDate InactivatedComments06/22/2022 3:25 PM06/24/2022 6:00 PMQuestion AnswerCommentsCode Limitations:* No Intubation * No Chest Compressions * No Defibrillation or Cardioversion * No Mechanical Ventilation * Full Code Date ActivatedDate InactivatedComments06/22/2022 12:54 AM06/22/2022 1:55 PM Care Teams Team MemberRelationshipSpecialtyStart DateEnd Date Tanna Leyva MD [address] [place] [address] PCP - GeneralFamily Wvqkqrem66/9/24
--- OUTSIDE RECORDS SUMMARY | 2025-10-03 09:51 | XMS_ITS | Clinical Summary ---
Author Organization [employer] tem Address [id number] [address] [place] [address] Care Team Providers Care Supervising Architect Name Role Phone Tanna Leyva MD Primary Care Provider [phone] Allergies Active AllergyReactionsCriticalityNoted DateCommentsOxybutyninHivesMedium 08/26/2021rednisoneOther (See Comments)04/25/2023RivaroxabanOther (See Comments)10/31/2023 Patients daughter states medication made him off balance/fall Medications MedicationSigDispense QuantityRefillsLast FilledStart DateEnd DateStatus PHENobarbitaL (LUMINAL) 32.4 mg tablet Indications:simple-partial epilepsyTake 1 tablet (32.4 mg total) by mouth 3 (three) times a day Indications: simple partial seizures. [facility] [place] 1 tablet ctive escitalopram (LEXAPRO) 20 mg [...] Problems ProblemNoted DateDiagnosed DateWeakness of both quadriceps libvljd2506/04/2025 Excessive daytime /30/2023hronic kidney jnhgaai2507/20/2023KI (acute kidney injury)01/11/20233911Yianyne90/21/2023Orthostatic lysptdfprgxvepx22/21/2023 Osteoarthritis of multiple gfffyi1209/08/2022Falls, hodfvfg1909/08/2022plenomegaly 08/06/20221167Zpfnzq45/03/2022ymptomatic lwptelndmtl07/02/2022Truncal ataxia 2Chronic juzqkzb7106/11/2021enign prostatic hyperplasia with lower urinary tract uljshubq73/16/2021 Overview (11/06/2024): 03/17/21: Lower urinary tract symptoms [...] call me sooner if any problems. Cardiac dzwexifgkw71/23/2020Marginal zone kuigsdlu63/06/2013Thrombocytopenia 02/24/2013OsteoarthritisLocalized edemaAbnormal MRI, lumbar spine Overview (06/02/2017): [...] DateSOB (shortness of breath)06/11/2021 06/11/2021 Encounters DateTypeDepartmentCare PvopGjqtsinvtuj62/25/2025Telephone [facility] Department of [facility] [address] [facility] [address] [address] [place] [phone] [place] Officefrom Last 3 Months Immunizations ImmunizationAdministration DatesNext DueInfluenza High Dose Preservative Free IM 10/14/2020,10/30/2019,08/31/2018,12/19/2017Influenza, Im Trivalent Preservative 09/03/2013Influenza, Intradermal (Pf)10/02/2015Influenza, Vbnhfbmndwn08/12/2015 Pneumococcal Mvzzabgpz62/27/2012Pneumococcal Conjugate 13-Jgqdit2104/08/2016 Pneumococcal Lngmziqtwdsecs81/27/2012,11/21/2011Tdap05/25/2023,06/01/2017 Family History Medical HistoryRelationNameCommentsHeart diseaseBrotherSleep apneaDaughter RelationNameStatusCommentsBrotherDaughterFatherDeceasedMotherDeceased Social History Tobacco UseTypesPacks/DayYears UsedDateSmoking Tobacco: NeverSmokeless Tobacco: Never Tobacco Cessation:Counseling Given: Not Answered Alcohol UseStandard Drinks/WeekCommentsNot Currently0 (1 standard drink = 0.6 oz pure alcohol)PHQ-2AnswerDate RecordedTotal Qutgn7794ChildcareAnswerDate WbetgiaaFscqoknviHmbqfkl86/12/2019EmploymentAnswerDate RecordedEmploymentUnknown 05/02/2019Hunger ScreeningAnswerDate RecordedWithin the past 12 [...] InformationValueDate RecordedSex Assigned at BirthNot on fileLegal HsoVssa9406/26/2015 11:28 AM EDTGender IdentityNot on fileSexual OrientationNot on file Last Filed Vital Signs Vital SignReadingTime TakenCommentsBlood Wddpwzpo408/5707 9:55 AM EDT Fpytw7076/18/2025 9:55 AM WMATjiexajxfun38.3 ??C (97.4 ??F)06/07/2025 9:55 AM EDTRespiratory Zfny213806/07/2025 9:55 AM EDTOxygen Ojixqkkygu27%06/07/2025 9:55 AM EDTInhaled Oxygen Concentration--Jkcdlq51.1 kg (192 lb)06/19/2025 10:56 AM FCNXzbxki450 cm (6' 2.02 )06/07/2025 9:55 AM EDTBody Mass Index24.64006/07/2025 9:55 AM EDT Plan of Treatment DateTypeDepartmentCare Team (Latest Contact Info)Yzguvvlzwtn52/25/2025 4:00 PM ESTOffice Visit [facility] [place] [place] [address] Jin Gracia MD [address] [place] [address], [facility] [address] [place] [address] 10/29/2025 2:00 PM ESTAppointment [facility] - [facility] [address] [place] [phone] 11/26/2025 1:00 PM ESTOffice Visit [facility] [address] [place] [address] [place] [address] Rudy Strong MD [facility] [place], [place] [phone] 01/02/2026 1:00 PM ESTOffice Visit [facility] - Medical Oncology [address] [place] [address] [place] [address] [place] [address] [address] [place] [id number] Health MaintenanceDue DateLast DoneCommentsZoster (Shingles) Vaccine (1 of 2) 1962Fall Risk Jxoqwdbcf48/17/2008RSV ( or age 60+ yrs) (1 - 1-dose 75+ series)2018COVID-19 Vaccine (2024- season)/08/2021, 01/21/2021, 12/24/2020Influenza Ehcmhxi39/03/2024, 10/28/2023, 10/14/2020, Additional history existsDepression Pofgyvsyl41/ Tobacco Xuenprfwg96/03/2025DTaP,Tdap and Td Vaccines (3 - Td or Tdap) /03/2023, 06/01/2017 Goals GoalPatient Goal TypeAssociated ProblemsRecent ProgressPatient-Stated?Author <enter goal here> Liseth Jacome LSW Note: Evaluation of progress towards goal: plan home self care with family support Medical Devices ImplantedTypeAreaManufacturerDevice IdentifierShelf Expiration DateModel / Serial / Parris 4.75 - Sna - [id number] Implanted:Qty: 2 on 08/14/2018 [facility] [id number]/31/[id number] / NA / [id number] Insurance Advance Directives TypeDate RecordedPatient RepresentativeExplanationDNR Physician Order06/30/2022 8:54 AMLiving Will06/30/2022 7:47 AM * Modified Code Status [place] (Latest Code Status on File) Date ActivatedDate InactivatedComments06/22/2022 3:25 PM06/24/2022 6:00 PMQuestion AnswerCommentsCode Limitations:* No Intubation * No Chest Compressions * No Defibrillation or Cardioversion * No Mechanical Ventilation * Full Code Date ActivatedDate InactivatedComments06/22/2022 12:54 AM06/22/2022 1:55 PM Care Teams Team MemberRelationshipSpecialtyStart DateEnd Date Tanna Leyva MD [address] [place] [address] PCP - GeneralFamily Luasdfmc20/9/24
--- OUTSIDE RECORDS SUMMARY | 2025-10-03 09:51 | XMS_ITS | Encounter Summary ---
Author Organization [facility] Address [address] [facility] [place] [address] Care Team Providers Care Stemhole Borer Name Role Phone Tanna Leyva MD Primary Care Provider [phone] Tanna Leyva MD Unavailable Encounter Details DateTypeDepartmentCare Team (Latest Contact Info)Zjdxxsmlzez54/10/2025Travel Social History Tobacco UseTypesPacks/DayYears UsedDateSmoking Tobacco: NeverSmokeless Tobacco: NeverAlcohol UseStandard Drinks/WeekCommentsNot Currently0 (1 standard drink = 0.6 oz pure alcohol)caffeine intake: 1-2 cups/dayPHQ-2AnswerDate RecordedPatient Health Questionnaire-2 Xvrgp622Sex and Gender InformationValueDate RecordedSex Assigned at BirthNot on fileLegal ZusJwxq8802/02/2023 7:36 PM EDT Gender IdentityNot on fileSexual OrientationNot on filedocumented as of this encounter Plan of Treatment DateTypeDepartmentCare Team (Latest Contact Info)Gvkhgcspzhw25/26/2025 10:20 AM ESTOffice Visit [facility] [address] [address] Tanna Leyva MD [address] [facility] [place] [address] 12/04/2025 10:00 AM ESTOffice Visit [facility] [address] [facility] [place] [address] Tanna Leyva MD [address] [facility] [address] [place], [place] [phone] documented as of this encounter Goals GoalPatient Goal TypeAssociated ProblemsRecent ProgressPatient-Stated?Author Help patient manage antidepressant medication Care PlanPatient on antidepressant monitoring planNoTanna Leyva, MDdocumented as of this encounter Visit Diagnoses Not on filedocumented in this encounter Additional Health Concerns Active ProblemsNoted DateDiagnosed DatePatient on antidepressant monitoring plan 05/30/2024ssessmentNoted TimePHQ-9 Depression Total Score: 10003/07/2024 10:00 AM EDTdocumented as of this encounter Care Teams Team MemberRelationshipSpecialtyStart DateEnd Date Tanna Leyva MD [address] [facility] [place], [place] [phone] PCP - GeneralFamily Medicine03/29/23 Tanna Leyva MD [address] [facility] [address] [place], [place] [phone] PCP - [employer]12/22/20documented as of this encounter
--- OUTSIDE RECORDS SUMMARY | 2025-10-03 09:51 | XMS_ITS | Encounter Summary ---
Author Organization [facility] Address [address] [facility] [place] [address] Care Team Providers Care Percher Name Role Phone Tanna Leyva MD Primary Care Provider [phone] Tanna Leyva MD Unavailable Encounter Details DateTypeDepartmentCare Team (Latest Contact Info)Uvwpblyzzio29/10/2025Telephone [facility] [address] [facility] [place] [address] Tanna Leyva MD [address] [facility] [place] [address] Social History Tobacco UseTypesPacks/DayYears UsedDateSmoking Tobacco: NeverSmokeless Tobacco: NeverAlcohol UseStandard Drinks/WeekCommentsNot Currently0 (1 standard drink = 0.6 oz pure alcohol)caffeine intake: 1-2 cups/dayPHQ-2AnswerDate RecordedPatient Health Questionnaire-2 Dcxjh642Sex and Gender InformationValueDate RecordedSex Assigned at BirthNot on fileLegal LlaKqbb5802/02/2023 7:36 PM EDT Gender IdentityNot on fileSexual OrientationNot on filedocumented as of this encounter Miscellaneous Notes * Telephone Encounter - Camelia Barragan MA - 09/30/2025 3:02 PM EST Daughter informed * Addendum Note - Maxx Curran NP - 09/30/2025 3:00 PM ESTAddended by: MAXX CURRAN on: 09/30/2025 03:00 PM Modules accepted: Orders * Telephone Encounter - Maxx Curran NP - 09/30/2025 3:00 PM EST Order placed for xray. * Telephone Encounter - Maryanne Forrester - 09/30/2025 2:36 PM EST Possible left thumb broken, can't bend or anything, hurt himself in the barn, just wants to come out for an xray Call [phone]-daughter- Elizabeth documented in this encounter Plan of Treatment DateTypeDepartmentCare Team (Latest Contact Info)Rnrxwrqkurp83/26/2025 10:20 AM ESTOffice Visit [address] [address] Tanna Leyva MD [address] [place] [phone] 12/04/2025 10:00 AM ESTOffice Visit [place] [address] [place] [address] Tanna Leyva MD [address] [place] [phone] documented as of this encounter Goals GoalPatient Goal TypeAssociated ProblemsRecent ProgressPatient-Stated?Author Help patient manage antidepressant medication Care PlanPatient on antidepressant monitoring Tanna Peña, MDdocumented as of this encounter Results * XR fingers 2+ [...] Diagnoses Diagnosis Injury of left thumb, initial encounter- Primary Injury of left thumb, initial encounter documented in this encounter Additional Health Concerns Active ProblemsNoted DateDiagnosed DatePatient on antidepressant monitoring plan 05/30/2024ssessmentNoted TimePHQ-9 Depression Total Score: 10003/07/2024 10:00 AM EDTdocumented as of this encounter Care Teams Team MemberRelationshipSpecialtyStart DateEnd Date Tanna Leyva MD [address] [place] [address] [facility] - [facility]23 Tanna Leyva MD [address] [place] [address] PCP - [employer]et[employer]12/22/20documented as of this encounter
--- OUTSIDE RECORDS SUMMARY | 2025-10-03 09:52 | XMS_ITS | Encounter Summary ---
Author Organization [facility] Address [address] [facility] [place] [address] Care Team Providers Care Lime Slaker Name Role Phone Tanna Leyva MD Primary Care Provider [phone] Tanna Leyva MD Unavailable Reason for Visit * ReasonOnset JmstTywfanyjZzlfers07/11/2025 Encounter Details DateTypeDepartmentCare Team (Latest Contact Info)Ptxronoejzn80/11/2025Results Follow-Up [facility] [address] [place] [phone] Pippa Vincent NP [address] [place], [place] [phone] XR fingers 2+ views left Social History Tobacco UseTypesPacks/DayYears UsedDateSmoking Tobacco: NeverSmokeless Tobacco: NeverAlcohol UseStandard Drinks/WeekCommentsNot Currently0 (1 standard drink = 0.6 oz pure alcohol)caffeine intake: 1-2 cups/dayPHQ-2AnswerDate RecordedPatient Health Questionnaire-2 Tarac404Sex and Gender InformationValueDate RecordedSex Assigned at BirthNot on fileLegal MlnWrnc1602/02/2023 7:36 PM EDT Gender IdentityNot on fileSexual OrientationNot on filedocumented as of this encounter Miscellaneous Notes * Telephone Encounter - Kim Hutchison MA - 10/01/2025 4:52 PM EST Spoke with patient's daughter and she verbalized understanding. Patient is scheduled for 10/03/25. * Telephone Encounter - Kim Hutchison MA - 10/01/2025 4:51 PM EST ----- Message from Pippa Vincent sent at 10/01/2025 4:20 PM EST ----- Fracture dislocation noted to the distal phalanax. Reduction was done in the office yesterday (09/30/25) by Dr. Hilario. Referral has been placed with orthopedics/hand specialist Dr. Mead in [place]. Make sure he follows up with Dr. Mead. ----- Message ----- From: Interface, Incoming Img Psone Background Sent: 10/01/2025 3:52 PM EST To: Pippa Vincent NP documented in this encounter Plan of Treatment DateTypeDepartmentCare Team (Latest Contact Info)Mpaelgxomwx38/26/2025 10:20 AM ESTOffice Visit [address] [address] Tanna Leyva MD [address] [place] [phone] 12/04/2025 10:00 AM ESTOffice Visit [address] [address] Tanna Leyva MD [address] [place] [phone] documented as of this encounter Goals GoalPatient Goal TypeAssociated ProblemsRecent ProgressPatient-Stated?Author Help patient manage antidepressant medication Care PlanPatient on antidepressant monitoring Tanna Peña F, MDdocumented as of this encounter Visit Diagnoses Not on filedocumented in this encounter Additional Health Concerns Active ProblemsNoted DateDiagnosed DatePatient on antidepressant monitoring plan 05/30/2024ssessmentNoted TimePHQ-9 Depression Total Score: 10003/07/2024 10:00 AM EDTdocumented as of this encounter Care Teams Team MemberRelationshipSpecialtyStart DateEnd Date Tanna Leyva MD [address] [facility] [place] [address] [facility] - [facility]/29[facility]23 Tanna Leyva MD [address] [facility] [place] [address] PCP - [employer]et[employer]12/22/20documented as of this encounter
--- OUTSIDE RECORDS SUMMARY | 2025-10-03 09:52 | XMS_ITS | Clinical Summary ---
Author Organization [facility] Address [address] [place] [address] Phone Care Team Providers Care Spa Receptionist Name Role Phone Tanna Leyva MD Primary Care Provider [phone] Allergies Active AllergyReactionsCriticalityNoted LjvsAyiwdwziBqbvnclmhrSpuvGcm15/24/2023 Medications MedicationSigDispense QuantityRefillsLast FilledStart DateEnd DateStatus midodrine [...] Problems ProblemNoted DateDiagnosed DateStage 3b chronic kidney lgahhhc0810/02/2025MI 24.0-24.9, adult07/05/2024Never smoked any iwyibqkzm33/15/2024resence of Watchman left atrial appendage closure ykurkc3703/22/2024-fib12/27/2023Sinus sxhnapbzklj03/06/7242Iknkplvdhsy60/06/2024High risk medication use12/27/2023t risk for falls10/14/2023 Resolved Problems ProblemNoted DateDiagnosed DateResolved DateAtrial fibrillation, unspecified typehronic atrial pwiacawcaaoo37 Encounters DateTypeDepartmentCare AaovKqfxeylydhr82/12/2025 2:40 PM ESTOffice Visit [address] [phone] Tessy Sequeira MD Presence of Watchman left atrial appendage closure device; Persistent atrial fibrillation (Multi); High risk medication use; Stage 3b chronic kidney disease (Multi); Never smoked any substance; BMI 24.0-24.9, adult; At risk for falls Discharge Disposition: Home10/02/20252417Nomtzl33/09/2025Refill [address] [phone] Tessy Sequeira MD Atrial fibrillation, unspecified type (Multi)from Last 3 Months Immunizations ImmunizationAdministration DatesNext DueFlu vaccine, quadrivalent, high-dose, preservative free, age 65y+ (FLUZONE)08/14/2025,10/28/2023Flu vaccine, trivalent, preservative free, HIGH-DOSE, age 65y+ (Fluzone)09/25/2024,10/28/2023 ,10/14/2020,10/30/2019,08/31/2018,12/19/2017Influenza, Gwdknauxxau48/12/2015 Influenza, intradermal, quadrivalent, preservative free10/02/2015Influenza, seasonal, tajnccbkpd87/14/2013Pneumococcal Conjugate PCV 7112/17/2011Pneumococcal conjugate vaccine, 13-valent (PREVNAR [...] InformationValueDate RecordedSex Assigned at BirthNot on fileLegal GfaSbju0312/02/2022 9:24 AM ESTGender IdentityNot on fileSexual OrientationNot on file Last Filed Vital Signs Vital SignReadingTime TakenCommentsBlood Kzqxzplf997/8210/02/2025 2:45 PM EST Srbcg774810/02/2025 2:45 PM ESTTemperature--Respiratory Rnmb058903/23/2024 9:57 AM EDTOxygen Bfupketqhb43%03/23/2024 9:57 AM EDTInhaled Oxygen Concentration-- Cavxll26.7 kg (189 lb)10/02/2025 2:45 PM RWHYptdwj083 cm (6' 2 )10/02/2025 2:45 PM ESTBody Mass Index24.27112/02/2024 2:45 PM EST Plan of Treatment DateTypeDepartmentCare Team (Latest Contact Info)Njrggskolki75/17/2026 3:10 PM EDTOffice Visit [facility] [address] [facility] [address] [place] [address] Tessy Sequeira MD [address] [facility] [address] [place] [address] Health MaintenanceDue DateLast DoneCommentsLipid Panel3CKD: Urine Protein Tbsivigkq35/17/1962Zoster Vaccines (1 of 2)2RSV High Risk: (Elderly (60+) or Population) (1 - 1-dose 75+ series)2018Diabetes Mkoaqjgjv35/26/706303/TSH Level504/4COVID-19 Vaccine ( season)/08/2021, 01/21/2021, 12/24/2020Medicare Annual Wellness Visit (AWV)603/, 03/07/2024, 3DTaP/Tdap/Td Vaccines (3 - Td or Tdap)/03/2023, 06/01/2017Pneumococcal Vaccine Wtogtxqcj90/19/2016, 10/17/2012, 10/17/2012, Additional history existsWelcome to Medicare OohejDjyapalgusbd06/20/2025, 03/07/2024, 01/27/2023Influenza Vaccine Veiedhelj71/24/2025, 09/25/2024, 10/28/2023, Additional history existsHIB VaccinesAged OutNo [...] LotDevice, Closure, 24mm Watchman Flx Laac - [id number] Implanted:Qty: 1 on 03/23/2024 [facility] [place] Cardiac ImplantN/A: Franchesca [id number] 01/11/[id number] / / [id number] Procedures Procedure NamePriorityDate/TimeAssociated DiagnosisCommentsECG 12-LEADRoutine 10/02/2025 2:40 PM EST Persistent atrial fibrillation (Multi) BASIC METABOLIC MKWLZAcfbtwh45/26/2024 11:58 AM EDT Paroxysmal atrial fibrillation (Multi) High risk medication use OROGdlmztw85/26/2024 11:58 AM EDT Paroxysmal atrial fibrillation (Multi) [...] MDECG ORDERABLES Final ResultPerforming OrganizationAddressCity/State/ZIP CodePhone Number [facility] * Thyroid Stimulating Hormone (03/16/2024 11:58 AM EDT)ComponentValueRef Range Test MethodAnalysis TimePerformed AtPathologist SignatureThyroid Stimulating Hormone3.070.44 - 3.98 mIU/L LAB IMMUNOASSAY METHOD 03/16/2024 5:14 PM EDTST. [facility] LABSpecimen (Source)Anatomical Location / Laterality Collection Method / VolumeCollection TimeReceived TimeBloodVenous blood specimen / UnknownVenipuncture / Poioslx1403/16/2024 11:58 AM EDT03/16/2024 11:[address] [facility] - 03/16/2024 5:14 PM EDT TSH testing is performed using different testing methodology at [facility] than at other [facility]. Direct result comparisons should only be made within the same method. Authorizing ProviderResult TypeResult StatusTessy FIGUEROA BLOOD ORDERABLESFinal ResultPerforming OrganizationAddressCity/State/ZIP CodePhone Number [facility] [address] [facility] [address] [place] [phone] * Basic Metabolic Panel (03/16/2024 11:58 AM EDT)ComponentValueRef RangeTest MethodAnalysis TimePerformed AtPathologist OeoiuldwqTusoouq7106 - 99 mg/dL LAB CHEMISTRY METHOD 03/16/2024 5:21 PM EDFORMERLY [facility] QJWSfprbd140594 - 145 mmol/L LAB CHEMISTRY METHOD 03/16/2024 5:21 PM [facility] LABPotassium4.43.5 - 5.3 mmol/L LAB CHEMISTRY METHOD 03/16/2024 5:21 PM EDFORMERLY [facility] HOWAdfptyfg85710 - 107 mmol/L LAB CHEMISTRY METHOD 03/16/2024 5:21 PM [facility] HIJJhnswngtroj3389 - 32 mmol/L LAB CHEMISTRY METHOD 03/16/2024 5:21 PM [facility] LABAnion Awi0558 - 20 mmol/L LAB CHEMISTRY METHOD 03/16/2024 5:21 PM [facility] LABUrea Pnqltucz523 - 23 mg/dL LAB CHEMISTRY METHOD 03/16/2024 5:21 PM [facility] LABCreatinine1.180.50 - 1.30 mg/dL LAB CHEMISTRY METHOD 03/16/2024 5:21 PM [facility] BLSdUZV44>60 mL/min/1.73m*2 LAB CHEMISTRY METHOD 03/16/2024 5:21 PM [facility] LABComment: Calculations of estimated GFR are performed using the 2020 CKD-EPI Study Refit equation without therace variable for the IDMS-Traceable creatinine methods. https://jasn.asnjournals.org/content//ASN.1212704207 Calcium8.88.6 - 10.6 mg/dL LAB CHEMISTRY METHOD 03/16/2024 5:21 PM [facility] LABSpecimen (Source)Anatomical Location / Laterality Collection Method / VolumeCollection TimeReceived TimeBloodVenous blood specimen / UnknownVenipuncture / Vnqumlo8203/16/2024 11:58 AM EDT03/16/2024 11:58 AM EDT Narrative Authorizing ProviderResult TypeResult StatusTessy Sequeira MDLAB BLOOD ORDERABLESFinal ResultPerforming OrganizationAddressCity/State/ZIP CodePhone Number [facility] [address] [facility] [address] [place] [address] from Last 3 Months or Most Recently Relevant to Health Maintenance Insurance Advance Directives For more information, please contact: [phone] (Available ) * Full Code (Latest Code Status on File) Date ActivatedDate InactivatedComments03/23/2024 1:45 PMQuestionAnswerCommentsPlan of Care:* Code Status Discussion Completed Decision Maker:* Patient * Full Code Date ActivatedDate InactivatedComments03/23/2024 9:25 AM03/23/2024 1:45 PMQuestion AnswerCommentsPlan of Care:* Code Status Discussion Completed Decision Maker:* Patient Care Teams Team MemberRelationshipSpecialtyStart DateEnd Date Tanna Leyva MD [address] [place] [address] PCP - GeneralFamily Medicine07/05/24
--- OUTSIDE RECORDS SUMMARY | 2025-10-03 09:52 | XMS_ITS | Clinical Summary ---
Author Organization [facility] Address [address] [place] [address] Care Team Providers Care Welt Sole Layer Name Role Phone Tanna Leyva MD Primary Care Provider [phone] Tanna Leyva MD Unavailable Allergies Active AllergyReactionsCriticalityNoted TscgGtudyoavWsavrwmhgaCmkym12/05/2023 QgtjcqywvlHyory08/05/6600Rzvzcxogvfe35/11/2023 Other Reaction(s): Other (See Comments) Patients daughter states medication made him off balance/fall Medications MedicationSigDispense QuantityRefillsLast FilledStart DateEnd DateStatus amiodarone (Pacerone) 200 MG tablet 100 mgActive torsemide (Demadex) 10 MG tablet Take 10 mg by mouth in the morning.Active aspirin 81 MG chewable tablet Chew 81 mg in the morning.03/23/2024ctive clopidogrel (Plavix) 75 MG tablet Take 75 mg by mouth in the morning.03/23/2024ctive Docusate Sodium (DSS) 100 MG capsule Take 100 mg by mouth every 12 (twelve) hours03/23/2024ctive KLOR-CON 10 MEQ ER tablet Take 10 mEq by mouth Daily03/28/2024ctive escitalopram (Lexapro) 20 MG tablet Indications:Major depressive disorder with single episode, remission status unspecifiedTake 1.5 tablets (30 mg) by mouth Daily 135 tablet 4Active triamcinolone (Kenalog) 0.1 % cream Indications:Allergic reaction, initial encounterAPPLY TO AFFECTED AREA TWICE A DAY 60 g 111ctive divalproex (Depakote) 500 MG EC tablet Indications:Seizure (HCC)TAKE 1 TABLET BY MOUTH IN THE MORNING, IN THE EVENING AND BEFORE BEDTIME 270 tablet 1114Active Additional Information Patient taking differently: 500 mg Oral 2 times daily, 1 tablet in the morning and 2 tablets at night, Reported on 09/30/2025 midodrine (Proamatine) 5 MG tablet Indications:Orthostatic hypotensionTake 1 tablet (5 mg) by mouth every 12 (twelve) hours 60 tablet 11005/27/7648426Active solifenacin (VESIcare) 10 MG tablet Indications:Urinary incontinence, unspecified typeTAKE 1 TABLET BY MOUTH EVERY DAY AT BEDTIME 90 tablet 5Active PHENobarbital (Luminal) 32.4 MG tablet Indications:Seizure disorder (HCC)TAKE 1 TABLET BY MOUTH EVERY 8 (EIGHT) HOURS 270 tablet 5Active PHENobarbital (Luminal) 32.4 MG tablet Indications:Seizure disorder (HCC)TAKE 1 TABLET (32.4 MG) BY MOUTH EVERY 8 (EIGHT) HOURS 270 tablet Discontinued Active Problems ProblemNoted DateDiagnosed DateParoxysmal atrial fibrillation with RVR111/30/2024 Periodic limb movement acqqtqxf41/10/2025Difficulty hndmsaic19/15/2025Quadriceps wsomffpo34/15/2025Stage 3a chronic kidney disease (CKD)02/07/2025Edema of lower foqffafwb94/05/2024oor short-term akdbwf3208/28/2024Obstructive sleep apnea euwdnyfs26/24/2024Sleep apnea08/14/2024MI 25.0-25.9,adult07/05/2024Never smoked any twatftzyg29/15/2024Encounter for follow-up examination after completed treatment for conditions other than malignant zzkmegpu55/17/2024History of /17/2024Never smoked tqhovko1006/06/2024neumonia due to infectious ryrejltc18/17/2024Unspecified urinary jkklavhdzxta76/12/2024resence of left atrial appendage closure fyweuy0103/22/2024resence of Watchman left atrial appendage closure svonse1203/22/2024Injury of head02/23/2024bnormal MRI, lumbar spine01/05/2024 Overview (01/05/2024): DDD, small spinal canal, herniated disc, foraminal stenosis Adhesive capsulitis of right rffairpy30/15/2024djustment disorder with mixed anxiety and depressed mood01/05/20243711Kqoilrw77/15/2024asal cell carcinoma 01/05/2024VT of lower limb, acute01/05/2024Frequent falls01/05/2024Leukocytosis 01/05/2024Localized edema01/05/2024Lower extremity edema01/05/2024Gait vpuyuonvpsk68/15/2024 Assessment & Plan (05/21/2025 4:05 PM EDT): consider atypical parkinsons. Managed by neuro no help with PT High risk medication use12/27/20233360Dpurir17/10/2024t risk for falls10/14/2023 Chronic kidney dzdosrx9907/20/2023Excessive daytime useudpicoc23/30/2023erebral qqeohws9706/28/2023Irregular heart xlvxcc1806/28/2023New onset atrial fibrillation 06/28/2023 Overview (06/28/2023): On pacerone per cardiology/ xarelto Assessment & Plan (08/15/2025 4:01 PM EDT): Manaed by cardioogy amiodarone Assessment & Plan (07/16/2025 4:52 PM EDT): stable managed by cardiology Prostate upaukq1206/28/2023 Overview (06/28/2023): 08/12/20: Progressive luts. pvr 183 cc. Just started tamsulosin. Plan to continue to see if benefit. If none can try double dose. If that [...] consent discussed. 02/03/21: Turp 02/17/21: Final path: Roxton grade 3+4 = 7 (grade group 2), [...] Recheck in 6 months 03/22/23: PSA 1.14 Last Assessment & Plan: He wants to continue with active surveillance Assessment & Plan (08/15/2025 4:01 PM EDT): Managed by urology Assessment & Plan (07/16/2025 4:52 PM EDT): pal managed by urology PVC (premature ventricular contraction)06/28/2023eneral gfasbucf14/07/2023Lack of ejjwpagduesp39/07/2023History of lecsnoc6704/27/2023KI (acute kidney injury) 01/11/2023Orthostatic labenrjqimrkyoc66/21/2023 Overview (06/28/2023): Midodrine per cardiology Owdzfytng57/21/2023Edema of both lower fdfwtbnhuyb01/10/2023Injury of kidney 11/30/2022Osteoarthritis of multiple tgksxh8809/08/2022Falls, pmopfkz6309/08/2022 Assessment & Plan (07/16/2025 4:52 PM EDT): cont with Ijtfsxucljyl36/16/2022ymptomatic stfsovsvrhd96/02/2022enign prostatic hyperplasia with lower urinary tract uzdhfubs22/16/2021 Overview (06/28/2023): 03/17/21: Lower urinary tract symptomswith urgency and urge incontinence. PVR 127 cc. Urine dipstick suggestive of an infection. Plan forculture. If culture negative will start anticholinergics. If positive will treat accordingly. Recheck 3-4 weeks 04/14/21: Put on oxybutynin xl 10 mg. Improved. Plan to continue. Recheck 6 months 08/26/21: Reaction with oxybutynin. Switched to VESIcare but recently ran out. Frequency and urgency sincethen. UA neg. PVR 35. Will restart VESIcare 11/10/21: Improved symptoms with vesicare 10 mg 06/02/22: Persistent urgency, frequency, and nocturia. PVR 0. Discussed beta 3 agonist, but he declined. : Stable using vesicare 10 mg Last Assessment & Plan: He will call if he changes his mind otherwise we will see him back in 6 months with a PSA Cardiac tyztzlcbxf01/23/2020Other specified ddsefmgpaiovcr30/23/2020Major depression, single uyifwxf4805/06/2020Prolonged grief bqoctduh32/12/2020Localized, primary osteoarthritis of hand10/30/2019Complete tear of right rotator cuff 08/10/2018Primary dntcqlqy79/14/2018Rupture of right rotator cuff08/04/2018 Primary osteoarthritis of right mexgoxea55/21/2018Other chronic pain03/07/2018 Stress at home01/16/2018Seizure xpwabaoj65/20/2017 Overview (06/28/2023): Stable on depakote/ phenobarbital Assessment & Plan (08/15/2025 4:01 PM EDT): managed by neurology on depakote/ phenobarbital Assessment & Plan (06/25/2025 9:11 PM EDT): Chronic lymphocytic xibsxueu39/20/2017 Assessment & Plan (08/15/2025 4:01 PM EDT): Managed by hematology stabe Assessment & Plan (07/16/2025 4:52 PM EDT): managed by hem onc stable Assessment & Plan (06/25/2025 9:11 PM EDT): Marginal zone rwautypp57/06/2013 Assessment & Plan (08/14/2025 10:06 AM EDT): Fwrkploxvgciphsd83/06/2013 Overview (06/28/2023): Per hematology Encounters DateTypeDepartmentCare TuxwBlagfakmebw56/11/2025Results Follow-Up [facility] [address] [facility] [place] [phone] Pippa Vincent NP XR fingers 2+ views left10/01/2025Refill [place] [id number] [facility] [place] [phone] Tanna Leyva MD Seizure disorder (HCC)09/30/2025 4:30 PM ESTOffice Visit [facility] [address] [facility] [place] [phone] Pippa Vincent NP Closed dislocation of left thumb, initial encounter (Primary Dx); Closed avulsion fracture of phalanx of left thumb, initial jpbgczmza17/10/2025 1:45 PM ESTAncillary Procedure [facility] [address] [facility] [address] [place] [address] Injury of left thumb, initial lbcohbkmg65/10/9902Xsduyi47/10/2025Telephone [facility] [address] [place] [phone] Tanna Leyva MD 09/24/2025 9:30 AM ESTTreatment [facility] [address] [place] [address] La Mccarthy, IMAGING SERVICES DIRECTOR General weakness (Primary Dx); Gait disturbance; History of lwmdfxf7909/17/2025 10:30 AM EDTTreatment [facility] [address] [place] [address] La Mccarthy, IMAGING SERVICES DIRECTOR General weakness (Primary Dx); Gait disturbance; History of rkbqgnz9109/17/2025amboo flowsheet [facility] [address] [place] [address] La Mccarthy, IMAGING SERVICES DIRECTOR 09/17/20252973Mkwfid42/21/2025 10:30 AM EDTTreatment [facility] [address] [place] [address] La Mccarthy, IMAGING SERVICES DIRECTOR General weakness (Primary Dx); Gait disturbance; History of edmkivp7409/10/2025amboo flowsheet [facility] [address] [place] [address] La Mccarthy, IMAGING SERVICES DIRECTOR 09/10/20250146Ifpjoc32/14/2025 10:30 AM EDTTreatment [facility] [address] [place] [address] Yaritza Valverde, YESSENIA General weakness (Primary Dx); Gait disturbance; History of falling; Ataxia; Lack of lhaeyesexsyc44/14/8411Aaytqu19/07/2025 10:30 AM EDTTreatment [facility] [address] [place] [address] Yaritza Valverde, YESSENIA General weakness (Primary Dx); Gait disturbance; History of fezptam0908/27/2025amboo flowsheet [facility] [address] [place] [address] Yaritza Valverde, IMAGING SERVICES DIRECTOR 08/27/20257262Ugcscb84/30/2025 10:30 AM EDTTreatment [facility] [address] [place] [address] Yaritza Valverde PTA General weakness (Primary Dx); Gait disturbance; History of zjxwuti3308/20/2025[facility]heet [facility] [address] [place] [address] Yaritza Valverde, IMAGING SERVICES DIRECTOR 08/20/20257643Ouxnuj04/24/2025 9:20 AM EDTOffice Visit [place] [id number] [facility] [place] [address] Tanna Leyva MD Seizure disorder (HCC) (Primary Dx); Chronic lymphocytic leukemia (HCC); New onset atrial fibrillation (HCC); Prostate cancer (HCC); Marginal zone lymphoma (HCC); Encounter for cynaobhgziwy26/24/2025[place] [address] [place] [address] Tanna Leyva MD 08/14/20258776Eyvuij11/23/2025 10:30 AM EDTTreatment [facility] [address] [place] [address] Yaritza Valverde PTA General weakness (Primary Dx); Gait disturbance; History of ditkhod3808/13/2025[facility]heet [facility] [address] [place] [address] Yaritza Valverde, YESSENIA 08/13/20257855Atvtll19/16/2025 10:30 AM EDTTreatment [facility] [address] [place] [address] La Mccarthy PTA General weakness (Primary Dx); Gait disturbance; History of gykwkth9408/06/20256867Xgizpl50/16/2025Refill [place] [address] [place] [address] Tanna Leyva MD Urinary incontinence, unspecified type07/30/2025 10:30 AM EDTTreatment [facility] [address] [place] [address] Yaritza Valverde, IMAGING SERVICES DIRECTOR General weakness (Primary Dx); Gait disturbance; History of tuuskgg1507/30/2025amboo flowsheet [facility] [address] [place] [address] Yaritza Valverde, IMAGING SERVICES DIRECTOR 07/30/20252499Yptpeu75/02/2025 10:30 AM EDTTreatment [facility] [address] [place] [address] La Mccarthy, IMAGING SERVICES DIRECTOR General weakness (Primary Dx); Gait disturbance; History of osiquam2607/23/2025amb flowsheet [facility] [address] [place] [address] La Mccarthy, IMAGING SERVICES DIRECTOR 07/23/20251248Epmlpe99/26/2025 11:20 AM EDTOffice Visit [facility] [address] [place] [address] Tanna Leyva MD Chronic lymphocytic leukemia (HCC) (Primary Dx); New onset atrial fibrillation (HCC); Prostate cancer (HCC); Falls, sequela; Balance disorder; Ribcov6707/16/2025[facility] flowsheet [facility] [address] [place] [address] Tanna Leyva MD 07/16/2025Travelfrom Last 3 Months Immunizations ImmunizationAdministration DatesNext DueInfluenza, High Dose Seasonal, Preservative Free09/25/2024,10/28/2023,10/14/2020,10/30/2019,08/31/2018, 12/19/2017Influenza, High-dose Seasonal, Quadrivalent, Preservative Free 08/14/2025,10/14/2020Influenza, intradermal, quadrivalent, preservative free 10/02/2015Influenza, seasonal, wmgmatbcch13/14/2013Pneumococcal Conjugate PCV 13 04/08/2016Pneumococcal Conjugate PCV 7112/17/2011Pneumococcal Polysaccharide BRCQ495412/17/2011,11/21/2011Tdap07,06/01/2017 Family History RelationNameStatusCommentsFatherDeceasedMaternal GrandfatherDeceasedMaternal GrandmotherDeceasedMotherDeceasedPaternal GrandfatherDeceasedPaternal GrandmotherDeceased Social History Tobacco UseTypesPacks/DayYears UsedDateSmoking Tobacco: NeverSmokeless Tobacco: Never Tobacco Cessation:Counseling Given: Not Answered Alcohol UseStandard Drinks/WeekCommentsNot Currently0 (1 standard drink = 0.6 oz pure alcohol)caffeine intake: 1-2 cups/dayPHQ-2AnswerDate RecordedPatient Health Questionnaire-2 Tywmt394Sex and Gender InformationValueDate RecordedSex Assigned at BirthNot on fileLegal AnzTelt9402/02/2023 7:36 PM EDTGender Identity Not on fileSexual OrientationNot on file Last Filed Vital Signs Vital SignReadingTime TakenCommentsBlood Rgktmmox160/7009 9:33 AM EDT Seerc6192 9:33 AM PKJDcimyrdvbqj05.4 ??C (97.6 ??F)01/05/2024 2:10 PM ESTRespiratory Pxea344608/14/2025 9:33 AM EDTOxygen Qziqciakwo58%08/14/2025 9:33 AM EDTInhaled Oxygen Concentration--Sypoql90.3 kg (190 lb 3.2 oz)08/14/2025 9:33 AM FJODhlyit854.9 cm (6')08/14/2025 9:33 AM EDTBody Mass Index25.809 9:33 AM EDT Plan of Treatment DateTypeDepartmentCare Team (Latest Contact Info)Fekgympnneq01/26/2025 10:20 AM ESTOffice Visit [facility] [address] [facility] [place] [phone] Tanna Leyva MD [address] [facility] [place] [address] 12/04/2025 10:00 AM ESTOffice Visit [facility] [address] [place] [address] Tanna Leyva MD [address] [place], [place] [phone] Health MaintenanceDue DateLast DoneCommentsCOVID-19 Vaccine ( season) , 01/21/2021, 12/24/2020Medicare Annual Wellness (AWV) , 03/07/2024, 01/27/2023, Additional history exists Pneumococcal Vaccine: 65+ YqwggTxgjmcelm67/19/2016, 10/17/2012, 10/17/2012, Additional history existsInfluenza ZygbpvdTprqcebme69/24/2025, 09/25/2024, 10/28/2023, Additional history exists Goals GoalPatient Goal TypeAssociated ProblemsRecent ProgressPatient-Stated?Author Help patient manage antidepressant medication Care PlanPatient on antidepressant monitoring Tanna Peña MD Procedures Procedure NamePriorityDate/TimeAssociated DiagnosisCommentsPR CLTX PHLNGL FX PROX/MIDDLE PX/F/T W/O MANJ BQFisorln88/10/2025 4:00 PM EST Closed dislocation of left thumb, initial encounter XR FINGERS 2+ VIEWS TMVRLmdakff21/10/2025 3:50 PM EST Injury of left thumb, initial encounter from Last 3 Months Results * [place] CLTX PHLNGL FX PROX/MIDDLE PX/F/T W/O MANJ EA (09/30/2025 4:00 PM EST) Pippa Padilla NP - 09/30/2025 4:00 PM EST Pippa Vincent NP 09/30/2025 5:05 PM Orthopedic Injury Treatment - Fracture Date/Time: 09/30/2025 4:00 PM Performed by: Lucho Hilario MD Authorized by: Pippa Majors, TARRING MACHINE OPERATOR ?? Consent: ??Consent obtained: ??Verbal ??Consent given [...] no ?Immobilization: Thumb splint placed with an fede wrap. Post-procedure details: ??Distal neurologic exam: ??Normal ??Distal perfusion: distal pulses strong ?Range of motion: normal ?Procedure completion: ??Tolerated Authorizing ProviderResult TypeResult StatusBreann Majors NPIN CLINIC/BEDSIDE ORDERABLESFinal Result * XR fingers 2+ views left (09/30/2025 [...] StatusBreann Majors NPIMG XR PROCEDURES Final Result from Last 3 Months Additional Health Concerns Active ProblemsNoted DateDiagnosed DatePatient on antidepressant monitoring plan 05/30/[address] [place] [address] Advance Directives TypeDate RecordedPatient RepresentativeExplanationPower of Attorney02/06/2024 2:50 PM Care Teams Team MemberRelationshipSpecialtyStart DateEnd Date Tanna Leyva MD [address] [place] [phone] PCP - GeneralFamily Medicine03/29/23 Tanna Leyva MD [address] [place] [phone] [facility] - [employer]2
--- OUTSIDE RECORDS SUMMARY | 2025-10-03 09:52 | XMS_ITS | Encounter Summary ---
Author Organization [facility] Address [address] [place] [address] Phone Care Team Providers Care Semiconductor Assembler Name Role Phone Tanna Leyva MD Primary Care Provider [phone] Encounter Details DateTypeDepartmentCare Team (Latest Contact Info)Nyxivgcebrp73/12/2025Travel Social History Tobacco UseTypesPacks/DayYears UsedDateSmoking Tobacco: NeverSmokeless Tobacco: NeverAlcohol UseStandard Drinks/WeekCommentsNever0 (1 standard drink = 0.6 oz pure alcohol)Sex and Gender InformationValueDate RecordedSex Assigned at Not on fileLegal FxxExld7512/02/2022 9:24 AM ESTGender IdentityNot on fileSexual OrientationNot on filedocumented as of this encounter Functional Status * BPAnswerDate of CopowgtfrlMfpgic478/8210/02/2025 2:45 PM Angie Sam CMA * PulseAnswerDate of QnaekdcnbrMyogop0240/12/2025 2:45 PM Angie Sam CMA * Communicable Disease ScreeningQuestionAnswerDate of AssessmentAuthorDo you have any of the following new or worsening symptoms?None of these10/02/2025 2:32 PM Rosio Waltone documented as of this encounter Plan of Treatment DateTypeDepartmentCare Team (Latest Contact Info)Wkxgameojkl21/17/2026 3:10 PM EDTOffice Visit [facility] [address] [facility] [address] [place] [address] Tessy Sequeira MD [address] [facility] [address] [place] [address] documented as of this encounter Visit Diagnoses Not on filedocumented in this encounter Additional Health Concerns AssessmentNoted TimeA fall risk assessment has been completed for the patient 10/02/2025 2:46 PM ESTdocumented as of this encounter Care Teams Team MemberRelationshipSpecialtyStart DateEnd Date Tanna Leyva MD [address] [place] [address] PCP - GeneralFamily Medicine07/05/24documented as of this encounter
--- OUTSIDE RECORDS SUMMARY | 2025-10-03 09:52 | XMS_ITS | Clinical Summary ---
Author Organization [facility] Address [address] [place] [address] Care Team Providers Care Supervisor Electronics Inspection Name Role Phone Unavailable Primary Care Provider Unavailabl e Social History Tobacco UseTypesPacks/DayYears UsedDateSmoking Tobacco: Never AssessedUT Safety & EnvironmentAnswerDate RecordedFear of Current or Ex-PartnerNot on file 01/12/2024Emotionally AbusedNot on file01/12/2024hysically AbusedNot on file 01/12/2024Sexually AbusedNot on file01/12/2024hysically or Sexually AbusedNot on file01/12/2024Sex and Gender InformationValueDate RecordedSex Assigned at BirthNot on fileLegal OpdXwme9607/06/2022 11:39 AM EDTGender IdentityNot on file Sexual OrientationNot on file Plan of Treatment Not on file
--- OUTSIDE RECORDS SUMMARY | 2025-10-03 09:52 | XMS_ITS | Encounter Summary ---
Author Organization [facility] Address [address] [facility] [place] [address] Care Team Providers Care Roofing Supervisor Name Role Phone Tanna Leyva MD Primary Care Provider [phone] Tanna Leyva MD Unavailable Reason for Visit * ReasonCommentsMed Refill Encounter Details DateTypeDepartmentCare Team (Latest Contact Info)Vrdanpsywcz75/11/2025[facility] [address] [facility] [place] [phone] Tanna Leyva MD [address] [place], [place] [phone] Seizure disorder (HCC) Social History Tobacco UseTypesPacks/DayYears UsedDateSmoking Tobacco: NeverSmokeless Tobacco: NeverAlcohol UseStandard Drinks/WeekCommentsNot Currently0 (1 standard drink = 0.6 oz pure alcohol)caffeine intake: 1-2 cups/dayPHQ-2AnswerDate RecordedPatient Health Questionnaire-2 Tmsob061Sex and Gender InformationValueDate RecordedSex Assigned at BirthNot on fileLegal RxqZhzv4502/02/2023 7:36 PM EDT Gender IdentityNot on fileSexual OrientationNot on filedocumented as of this encounter Miscellaneous Notes * Telephone Encounter - Tanna Leyva MD - 10/01/2025 8:42 AM EST * Telephone Encounter - Tanna Leyva MD - 10/01/2025 8:42 AM EST Approvals with refills documented in this encounter Plan of Treatment DateTypeDepartmentCare Team (Latest Contact Info)Eythrzqussb46/26/2025 10:20 AM ESTOffice Visit [facility] [address] [place] [phone] Tanna Leyva MD [address] [place] [address] 12/04/2025 10:00 AM ESTOffice Visit [facility] [address] [place] [phone] Tanna Leyva MD [address] [place] [address] documented as of this encounter Goals GoalPatient Goal TypeAssociated ProblemsRecent ProgressPatient-Stated?Author Help patient manage antidepressant medication Care PlanPatient on antidepressant monitoring planNoTanna Leyva, MDdocumented as of this encounter Visit Diagnoses Diagnosis Seizure disorder (HCC) Unspecified epilepsy without mention of intractable epilepsy documented in this encounter Additional Health Concerns Active ProblemsNoted DateDiagnosed DatePatient on antidepressant monitoring plan 05/30/2024ssessmentNoted TimePHQ-9 Depression Total Score: 10003/07/2024 10:00 AM EDTdocumented as of this encounter Care Teams Team MemberRelationshipSpecialtyStart DateEnd Date Tanna Leyva MD [address] [place] [address] PCP - GeneralFamily Medicine03/29/23 Tanna Leyva MD [address] [place] [address] [facility] - Aetyfn12/22/20documented as of this encounter
== END 2025-10-03 09:46 | disposition home or self-care (01) ==
LOC: RAD 09:49
PROVIDERS: Visit Provider Physician Assistant
DX: S69.92XD Unspecified injury of left wrist, hand and finger(s), subsequent encounter (principal)
CPT/HCPCS: 73130

== ENCOUNTER 2025-10-31 07:32 | Outpatient (OUT) | payer MEDICARE, SELFPAY ==
--- OUTSIDE RECORDS SUMMARY | 2025-10-23 18:00 | XMS_ITS | Encounter Summary ---
Author Organization [facility] Address [address] [facility] [place] [address] Care Team Providers Care Thread Machine Operator Name Role Phone Tanna Leyva MD Primary Care Provider Ana Rosa Caceres NP Unavailable Reason for Visit * ReasonCommentsDizziness Encounter Details DateTypeDepartmentCare Team (Latest Contact Info)Rosscsslkck30/03/2025 6:00 PM ESTOffice Visit [facility] [address] [place] [phone] Pippa Vincent NP [address] [place], [place] [phone] Dizziness (Primary Dx); Weakness; Slurred speech; Altered mental status, unspecified altered mental status type Social History Tobacco UseTypesPacks/DayYears UsedDateSmoking Tobacco: NeverSmokeless Tobacco: NeverAlcohol UseStandard Drinks/WeekCommentsNot Currently0 (1 standard drink = 0.6 oz pure alcohol)caffeine intake: 1-2 cups/dayPHQ-2AnswerDate RecordedPatient Health Questionnaire-2 Ifsqz406Sex and Gender InformationValueDate RecordedSex Assigned at BirthNot on fileLegal LaaGovc8102/02/2023 7:36 PM EDT Gender IdentityNot on fileSexual OrientationNot on filedocumented as of this encounter Last Filed Vital Signs Vital SignReadingTime TakenCommentsBlood Ehadefcl461/5810/23/2025 5:52 PM EST Nzkhh642110/23/2025 5:52 PM ESTTemperature--Respiratory Rate--Oxygen Hupadeoizg01% 10/23/2025 5:52 PM ESTInhaled Oxygen Concentration--Weight--Height--Body Mass Index--documented in this encounter Progress Notes * Pippa Vincent NP - 10/23/2025 6:00 PM ESTAssociated Problem(s): Dizziness Orders: POCT glucose * Pippa Vincent NP - 10/23/2025 6:00 PM EST Images from the original note were not included. Subjective ?Quick Links Last Note in Specialty Snapshot Edit RFV/CC Edit Screenings Current Meds Patient ID: Chad Mcmahon is a 80 y.o. male who presents for Dizziness. HPI History of Present Illness The patient presents for evaluation of weakness and altered mental status. He is accompanied by hisdaughter. The patient was last seen a couple of weeks ago for a finger injury. He has been experiencing a general feeling of malaise, which began during his journey to the clinic. Approximately 40 minutes prior to the appointment, he was found on the floor, unable to rise independently, a recurring issue forhim. Despite assistance from his son-in-law, he exhibited significant weakness and required substantial effort to be moved to a chair in the living room. Even with the use of a walker and belt support, he was unable to stand unassisted. His speech has also been affected, with slurring noted. He hasbeen spending time outdoors despite his current health status. He has no history of blood glucose issues and has generally been in good health, apart from a history of seizures for which he is on medication. His daughter suspects a potential cold or bronchitis infection, as her has been diagnosed with bronchitis and has been on antibiotics and steroids for the past 3 days. She herself was prescribed antibiotics and steroids 2 days ago. The patient initially presented with symptoms of a runny nose and sniffling but reported feeling well after taking a cough drop at night. ?Quick Review Review Full History Meds - Current Medications[1] --- PMH - Seasonal allergies Seizures (HCC) Objective ?Quick Links Add Vitals Timeline (Adult) Labs Imaging Results Review Trend Vitals ?? Avoid pulling in long tables of results. Comment on relevant results to support your medical decision making. BP 112/58 Pulse 88 SpO2 90% Physical Exam Vitals and nursing note reviewed. HENT: Head: Normocephalic and atraumatic. Nose: Nose normal. Mouth/Throat: Mouth: Mucous membranes are moist. Eyes: Extraocular Movements: Extraocular movements intact. Pupils: Pupils are equal, round, and reactive to light. Cardiovascular: Rate and Rhythm: Normal rate and regular rhythm. Heart sounds: Normal heart sounds. Pulmonary: Effort: Pulmonary effort is normal. No respiratory distress. Breath sounds: No stridor. Rales present. No wheezing or rhonchi. Skin: General: Skin is warm and dry. Neurological: Mental Status: He is alert. He is disoriented. GCS: GCS eye subscore is 4. GCS verbal subscore is 5. GCS motor subscore is 6. Sensory: Sensation is intact. Motor: Weakness present. Gait: Gait abnormal. Comments: Oriented to person and place but disoriented to time. Psychiatric: Mood and Affect: Mood normal. Behavior: Behavior normal. Physical Exam Neurological: Patient is alert and oriented to person and place but not to time or current events. Cranial nerves II-XII are intact. Sensation is intact bilaterally in the face, hands, and legs. Motor strength is 5/5 in the upper extremities and 4/5 in the lower extremities. Coordination is intact with no dysmetria on dwxjcu-ce-bjvy testing. Reflexes are normal. No pronator drift noted. Speech isslurred. Respiratory: Crackles noted in the lungs bilaterally. Cardiovascular: Heart sounds are normal with no murmurs, rubs, or gallops. ?Quick Links Full Problem List Allergy Cardiology Chronic Pain GI Thyroid Assessment & Plan Dizziness Orders: POCT glucose Weakness Sent to ER for further assessment. Slurred speech Sent to ER for further assessment. Altered mental status, unspecified altered mental status type Sent to ER for further assessment. Assessment & Plan 1. Altered mental status: - The patient presents with altered mental status, including slurred speech and weakness, which started approximately 40 minutes before the visit. - Blood sugar in the office is 130. - Neurological examination reveals slurred speech and difficulty standing. - Differential diagnoses include urinary tract infection (UTI), pneumonia, stroke, or other infections. A CT scan of the head is recommended to rule out a stroke. - He will be transferred to the emergency room for further evaluation and management. A report willbe communicated to the ER. 2. Weakness: - The patient exhibits significant weakness, making it difficult for him to stand or walk without assistance. This weakness is acute and has worsened over the past few weeks. - Physical examination shows difficulty standing and walking without assistance. - Differential diagnoses include UTI, pneumonia, stroke, or other infections. - He will be transferred to the emergency room for further evaluation and management. 3. Cough and runny nose: - The patient has been experiencing a runny nose and cough, which may suggest a respiratory infection. - Given the current symptoms and the fact that his family members have been ill with similar symptoms, a respiratory infection is suspected. - He will be transferred to the emergency room for further evaluation and management. Due to patients reported symptoms and findings noted today on exam. Recommend going to the ER for further evaluation. EMS was called and transported patient to the ER. Report was called to Cassie at [facility]. [1] amiodarone (Pacerone) 200 MG tablet aspirin [...] Plan of Treatment DateTypeDepartmentCare Team (Latest Contact Info)Gsieiuibqqs31/14/2026 10:00 AM ESTOffice Visit [facility] [facility] [place] [address] Tanna Leyva MD [address] [place] [address] documented as of this encounter Goals GoalPatient Goal TypeAssociated ProblemsRecent ProgressPatient-Stated?Author Help patient manage antidepressant medication Care PlanPatient on antidepressant monitoring planJuanitoTanna cain, MDdocumented as of this encounter Procedures Procedure NamePriorityDate/TimeAssociated DiagnosisCommentsPOCT GLUCOSERoutine 10/23/2025 6:34 PM EST Dizziness documented in this encounter Results * POCT glucose (10/23/2025 6:34 PM EST)ComponentValueRef RangeTest Method Analysis TimePerformed AtPathologist SignatureGlucose Blood, EIV982yv/dL Specimen (Source)Anatomical Location / LateralityCollection Method / Volume Collection TimeReceived TimeBloodCapillary blood specimen / Gqzsnzj9110/23/2025 6:34 PM EST Narrative Authorizing ProviderResult TypeResult StatusBreProMedica [facility] Hospital NPPOINT OF CARE TEST ENTER/EDIT ORDERABLESFinal Result documented in this encounter Visit Diagnoses Diagnosis Dizziness- Primary Dizziness and giddiness Weakness Other malaise and fatigue Slurred speech Other speech disturbance Altered mental status, unspecified altered mental status type documented in this encounter Additional Health Concerns Active ProblemsNoted DateDiagnosed DatePatient on antidepressant monitoring plan 4AssessmentNoted TimePHQ-9 Depression Total Score: 1004 10:00 AM EDTdocumented as of this encounter Care Teams Team MemberRelationshipSpecialtyStart DateEnd Date Tanna Leyva MD [address] [place] [address] PCP - GeneralFamily Medicine03/29/23 Ana Rosa Caceres NP [address] [employer], [place] [id number] PCP - [employer]12/22/20documented as of this encounter
--- NOTE | 2025-10-31 | XR_ITS ---
[facility] [place] [id number] Patient Name: KALANI NO MRN: [id number] date: 1945 Sex: M Assigned Patient Location: [facility] Current Patient Location: [facility] Accession/Order Number: [id number] Exam Date: 10/31/2025 10:00 Report Date: 10/31/2025 13:00 At the request of: YONAS BURNS DO Procedure: XR hand LT min 3V LEFT HAND - 3 views CLINICAL DATA: Follow-up thumb fracture. COMPARISON: 10/03/2025 AP, lateral and oblique views were obtained. There is redemonstration of a potential intra-articular fracture at the base of the proximal phalanx of the thumb showing no significant interval change in alignment from the comparison. Suspected degenerative changes are also again seen at the distal interphalangeal joint of the thumb as well as at the first carpal metacarpal joint. There are no other developing fractures or dislocation. There are no significant soft tissue abnormalities. XR/XR hand LT min 3V IMPRESSION: STABLE APPEARANCE OF BONY CHANGES AT THE THUMB Impression dictated by: Kiana Alberto M.D. 10/31/2025 1:00 PM Dictation Location: [place] [address] Electronically authenticated by: [id number] Y Date: 10/31/2025 13:00
--- OUTSIDE RECORDS SUMMARY | 2025-10-31 07:37 | XMS_ITS | Clinical Summary ---
Author Organization [facility] Address [address] [place] [address] Care Team Providers Care Design/Animation Instructor Name Role Phone Tanna Leyva MD Primary Care Provider [phone] Pump, Ana Rosa SMOOTH PLATER Unavailable Allergies Active AllergyReactionsCriticalityNoted FwufUkjgehjbTzhvcwjrvzPnavy47/05/2023 OmyadcnptgPcnjf98/05/6995Zsyvfoqiqcw51/11/2023 Other Reaction(s): Other (See Comments) Patients daughter [...] (30 mg) by mouth Daily 135 tablet ctive triamcinolone (Kenalog) 0.1 % cream Indications:Allergic reaction, [...] and 2 tablets at night, Reported on 10/23/2025 midodrine (Proamatine) 5 MG tablet Indications:Orthostatic hypotensionTake 1 tablet (5 mg) by mouth every 12 (twelve) hours 60 tablet 1105076Active solifenacin (VESIcare) 10 MG tablet Indications:Urinary incontinence, unspecified typeTAKE 1 TABLET BY MOUTH EVERY DAY AT BEDTIME 90 tablet 5Active PHENobarbital (Luminal) 32.4 MG tablet Indications:Seizure disorder (HCC)TAKE 1 TABLET BY MOUTH EVERY 8 (EIGHT) HOURS 270 tablet 5Active Active Problems ProblemNoted DateDiagnosed DateParoxysmal atrial fibrillation with RVR111/30/2024 Periodic limb movement bjkcvufh26/10/2025Difficulty tsixdall66/15/2025Quadriceps foitvcxv01/15/2025Stage 3a chronic kidney disease (CKD)02/07/2025Edema of lower lvostwimk12/05/2024oor short-term baseob0708/28/2024Obstructive sleep apnea crhdmges05/24/2024Sleep apnea08/14/2024MI 25.0-25.9,adult07/05/2024Never smoked any hwuqpqbdb73/15/2024Encounter for follow-up examination after completed treatment for conditions other than malignant nwhulemk96/17/2024History of bzipcpuhzts91/17/2024Never smoked kijbrdp1706/06/2024neumonia due to infectious tuirgtek86/17/2024Unspecified urinary vqnujibmgnae89/12/2024resence of left atrial appendage closure otequn0703/22/2024resence of Watchman left atrial appendage closure xqsyvh0403/22/2024Injury of head02/23/2024bnormal MRI, lumbar spine01/05/2024 Overview (01/05/2024): DDD, small spinal canal, herniated disc, foraminal stenosis Adhesive capsulitis of right lluibrdv47/15/2024djustment disorder with mixed anxiety and depressed mood01/05/20246410Wdubgca50/15/2024asal cell carcinoma 01/05/2024VT of lower limb, acute01/05/2024Frequent falls01/05/2024Leukocytosis 01/05/2024Localized edema01/05/2024Lower extremity edema01/05/2024Gait csadcetbyov21/15/2024 Assessment & Plan (05/21/2025 4:05 PM EDT): consider atypical parkinsons. Managed by neuro no help with PT High risk medication use12/27/20233172Phoufr07/10/2024t risk for falls10/14/2023 Chronic kidney nhclupp8807/20/2023Excessive daytime czjhilgjuu93/30/2023erebral dtvqrnb7606/28/2023Irregular heart qamgmh4606/28/2023New onset atrial fibrillation 06/28/2023 Overview (06/28/2023): On pacerone per cardiology/ xarelto Assessment & Plan (08/15/2025 4:01 PM EDT): Manaed by cardioogy amiodarone Assessment & Plan (07/16/2025 4:52 PM EDT): stable managed by cardiology Prostate ontegq3606/28/2023 Overview (06/28/2023): 08/12/20: Progressive luts. pvr 183 [...] Assessment & Plan (07/16/2025 4:52 PM EDT): stabel managed by urology PVC (premature ventricular contraction)06/28/2023eneral rqezielx55/07/2023Lack of izyrwkcbbvsm30/07/2023History of pdzfsyn1804/27/2023KI (acute kidney injury) 01/11/2023Orthostatic rucomgqacoclebt97/21/2023 Overview (06/28/2023): Midodrine per cardiology Kpuakpvxc04/21/2023 Assessment & Plan (10/23/2025 7:31 PM EST): Orders: POCT glucose Edema of both lower sfikjgvcprx04/10/2023Injury of gakszg4311/30/2022 Osteoarthritis of multiple etakao4909/08/2022Falls, zjlaluf9309/08/2022 Assessment & Plan (07/16/2025 4:52 PM EDT): cont with Zjzvslmwgxjj35/16/2022Symptomatic inlfopvydui45/02/2022enign prostatic hyperplasia with lower urinary tract ggewwvfj43/16/2021 Overview (06/28/2023): 03/17/21: Lower urinary tract symptomswith [...] but recently ran out. Frequency and urgency since then. UA neg. PVR 35. Will restart VESIcare 11/10/21: Improved symptoms with vesicare 10 mg 06/02/22: Persistent urgency, frequency, and nocturia. PVR 0. Discussed beta 3 agonist, but he declined. 03/22: Stable using vesicare 10 mg Last Assessment & Plan: He will call if he changes his mind otherwise we will see him back in 6 months with a PSA Cardiac zkimpmtwzq10/23/2020Other specified dcuuepybidiacf81/23/2020Major depression, single zpizmsd4905/06/2020Prolonged grief kujvrefg84/12/2020Localized, primary osteoarthritis of hand10/30/2019Complete tear of right rotator cuff 08/10/2018Primary rgiozqrm75/14/2018Rupture of right rotator cuff08/04/2018 Primary osteoarthritis of right oapxdbse39/21/2018Other chronic pain03/07/2018 Stress at home01/16/2018Seizure bhbniyju01/20/2017 Overview (06/28/2023): Stable on depakote/ phenobarbital Assessment & Plan (08/15/2025 4:01 PM EDT): managed by neurology on depakote/ phenobarbital Assessment & Plan (06/25/2025 9:11 PM EDT): Chronic lymphocytic dhsichgw80/20/2017 Assessment & Plan (08/15/2025 4:01 PM EDT): Managed by hematology stabe Assessment & Plan (07/16/2025 4:52 PM EDT): managed by hem onc stable Assessment & Plan (06/25/2025 9:11 PM EDT): Marginal zone uawpenlj44/06/2013 Assessment & Plan (08/14/2025 10:06 AM EDT): Ofuctgqsmqelpzjm93/06/2013 Overview (06/28/2023): Per hematology Encounters DateTypeDepartmentCare TxmcGfmufojondz54/10/2025Telephone [facility] [address] [place] [address] Tanna Leyva MD 10/24/2025Telephone [facility] [address] [place] [address] Tanna Leyva MD 10/23/2025 6:00 PM ESTOffice Visit [facility] [address] [facility] [place] [address] Pippa Vincent NP Dizziness (Primary Dx); Weakness; Slurred speech; Altered mental status, unspecified altered mental status type10/23/2025amboo flowsheet [facility] [address] [facility] [place] [address] Pippa Vincent NP 10/23/20258987Wdjgup41/11/2025Results Follow-Up [facility] [address] [place] [address] Pippa Vincent NP XR fingers 2+ views left10/01/2025Refill [facility] [address] [place] [address] Tanna Leyva MD Seizure disorder (HCC)09/30/2025 4:30 PM ESTOffice Visit [facility] [address] [place] [address] Pippa Vincent NP Closed dislocation of left thumb, initial encounter (Primary Dx); Closed avulsion fracture of phalanx of left thumb, initial jtvvnwekx39/10/2025 1:45 PM ESTAncillary Procedure [facility] [address] [place] [address] [place] [address] Injury of left thumb, initial kvxgudnmd76/10/4265Ndaeke46/10/2025Telephone [facility] [address] [place] [address] Tanna Leyva MD 09/24/2025 9:30 AM ESTTreatment [facility] [address] [facility] [address] La Mccarthy, YESSENIA General weakness (Primary Dx); Gait disturbance; History of yaegzpy6009/17/2025 10:30 AM EDTTreatment [facility] [address] [place] [address] La Mccarthy, BELL RINGER General weakness (Primary Dx); Gait disturbance; History of ufkrylh56/28/2025Bamboo flowsheet [facility] [address] [place] [address] La Mccarthy, BELL RINGER 09/17/20252034Txbqux78/21/2025 10:30 AM EDTTreatment [facility] [address] [facility] [address] La Mccarthy, BELL RINGER General weakness (Primary Dx); Gait disturbance; History of anmnpqt95/21/2025Bamboo flowsheet [facility] [address] [place] [address] La Mccarthy, BELL RINGER 09/10/20253355Nfyntb30/14/2025 10:30 AM EDTTreatment [facility] [address] [facility] [address] Yaritza Valverde PTA General weakness (Primary Dx); Gait disturbance; History of falling; Ataxia; Lack of jpdmlactxduq71/14/2921Iycpwm64/07/2025 10:30 AM EDTTreatment [facility] [address] [place] [address] Yaritza Valverde PTA General weakness (Primary Dx); Gait disturbance; History of qvwsoqc3508/27/2025amboo flowsheet [facility] [address] [facility] [address] Yaritza Valverde PTA 08/27/20255815Sgdxug68/30/2025 10:30 AM EDTTreatment [facility] [address] [facility] [address] Yaritza Valverde PTA General weakness (Primary Dx); Gait disturbance; History of adlyekg6008/20/2025amb flowsheet [facility] [address] [facility] [address] Yaritza Valverde PTA 08/20/20256226Etsxxy82/24/2025 9:20 AM EDTOffice Visit [facility] [address] [place] [address] Tanna Leyva MD Seizure disorder (HCC) (Primary Dx); Chronic lymphocytic leukemia (HCC); New onset atrial fibrillation (HCC); Prostate cancer (HCC); Marginal zone lymphoma (HCC); Encounter for ufhmtbnvcdaw68/24/2025amboo flowsheet [facility] [address] [place] [address] Tanna Leyva MD 08/14/20256779Tdpnzg93/23/2025 10:30 AM EDTTreatment [facility] [address] [facility] [address] Yaritza Valverde PTA General weakness (Primary Dx); Gait disturbance; History of towkhzc7108/13/2025amboo flowsheet [facility] [address] [place] [address] Yaritza Valverde PTA 08/13/20255494Hfrdgp22/16/2025 10:30 AM EDTTreatment [facility] [address] [place] [address] La Mccarthy PTA General weakness (Primary Dx); Gait disturbance; History of rkcmnyr4508/06/20254688Ndwqzl17/16/2025Refill [facility] [address] [place] [address] Tanna Leyva MD Urinary incontinence, unspecified typefrom Last 3 Months Immunizations ImmunizationAdministration DatesNext DueInfluenza, High Dose Seasonal, Preservative Free09/25/2024,10/28/2023,10/14/2020,10/30/2019,08/31/2018, 12/19/2017Influenza, High-dose Seasonal, Quadrivalent, Preservative Free 08/14/2025,10/14/2020Influenza, intradermal, quadrivalent, preservative free 10/02/2015Influenza, seasonal, ywaeneiuly01/14/2013Pneumococcal Conjugate PCV 13 04/08/2016Pneumococcal Conjugate PCV 7112/17/2011Pneumococcal Polysaccharide DFQX737012/17/2011,11/21/2011Tdap05/25/2023,06/01/2017 Family History RelationNameStatusCommentsFatherDeceasedMaternal GrandfatherDeceasedMaternal GrandmotherDeceasedMotherDeceasedPaternal GrandfatherDeceasedPaternal GrandmotherDeceased Social History Tobacco UseTypesPacks/DayYears UsedDateSmoking Tobacco: NeverSmokeless Tobacco: Never Tobacco Cessation:Counseling Given: Not Answered Alcohol UseStandard Drinks/WeekCommentsNot Currently0 (1 standard drink = 0.6 oz pure alcohol)caffeine intake: 1-2 cups/dayPHQ-2AnswerDate RecordedPatient Health Questionnaire-2 Wyalz037Sex and Gender InformationValueDate RecordedSex Assigned at BirthNot on fileLegal AidNwbf3402/02/2023 7:36 PM EDTGender Identity Not on fileSexual OrientationNot on file Last Filed Vital Signs Vital SignReadingTime TakenCommentsBlood Szcbcoha321/5812 5:52 PM EST Hbldk2822 5:52 PM ZIOSygjaxpsjlm24.4 ??C (97.6 ??F)01/05/2024 2:10 PM ESTRespiratory Pvdv603908/14/2025 9:33 AM EDTOxygen Wognmukfki66%10/23/2025 5:52 PM ESTInhaled Oxygen Concentration--Qdkywq03.3 kg (190 lb 3.2 oz)08/14/2025 9:33 AM PAXIqtfbo424.9 cm (6')08/14/2025 9:33 AM EDTBody Mass Index25.8008/14/2025 9:33 AM EDT Plan of Treatment DateTypeDepartmentCare Team (Latest Contact Info)Hbbmklhphyk01/14/2026 10:00 AM ESTOffice Visit [facility] [address] [place] [address] Tanna Leyva MD [address] [place] [address] Health MaintenanceDue DateLast DoneCommentsCOVID-19 Vaccine ( season) , 01/21/2021, 12/24/2020Medicare Annual Wellness (AWV) 6002/07/2025, 02/07/2025, 03/07/2024, Additional history exists Pneumococcal Vaccine: 65+ LlavfQlcfwqimv99/19/2016, 10/17/2012, 10/17/2012, Additional history existsInfluenza LzltyrsSmjtfohvz13/24/2025, 09/25/2024, 10/28/2023, Additional history exists Goals GoalPatient Goal TypeAssociated ProblemsRecent ProgressPatient-Stated?Author Help patient manage antidepressant medication Care PlanPatient on antidepressant monitoring Tanna Peña MD Procedures Procedure NamePriorityDate/TimeAssociated DiagnosisCommentsPOCT GLUCOSERoutine 10/23/2025 6:34 PM EST Dizziness OR CLTX PHLNGL FX PROX/MIDDLE PX/F/T W/O MANJ RVHuxvggl94/10/2025 4:00 PM EST Closed dislocation of left thumb, initial encounter XR FINGERS 2+ VIEWS NQGDVptnjck59/10/2025 3:50 PM EST Injury of left thumb, initial encounter from Last 3 Months Results * POCT glucose (10/23/2025 6:34 PM EST)ComponentValueRef RangeTest Method Analysis TimePerformed AtPathologist SignatureGlucose Blood, NDO743qa/dL Specimen (Source)Anatomical Location / LateralityCollection Method / Volume Collection TimeReceived TimeBloodCapillary blood specimen / Lpvhakw1210/23/2025 6:34 PM EST Narrative Authorizing ProviderResult TypeResult StatusBredrew Vincent NPPOINT OF CARE TEST ENTER/EDIT ORDERABLESFinal Result * OR CLTX PHLNGL FX PROX/MIDDLE PX/F/T W/O MANJ EA (09/30/2025 4:00 PM EST) Narrative Pippa Vincent NP - 09/30/2025 4:00 PM EST Pippa [...] DatePatient on antidepressant monitoring plan 05/30/2024 Insurance Advance Directives TypeDate RecordedPatient RepresentativeExplanationPower of Attorney02/06/2024 2:50 PM Care Teams Team MemberRelationshipSpecialtyStart DateEnd Date Tanna Leyva MD [address] [place] [address] PCP - GeneralFamily Medicine03/29/23 Ana Rosa Caceres NP [address] [place] [address] PCP - [employer]12/22/20
--- OUTSIDE RECORDS SUMMARY | 2025-10-31 07:37 | XMS_ITS | Encounter Summary ---
Author Organization [facility] Address [address] [facility] [place] [address] Care Team Providers Care Supervisor Agency Appointments Name Role Phone Tanna Leyva MD Primary Care Provider [phone] Ana Rosa Caceres SPEED BELT SANDER TENDER Unavailable Encounter Details DateTypeDepartmentCare Team (Latest Contact Info)Libigdjpweo80/04/2025Telephone [facility] [address] [place] [address] Tanna Leyva MD [address] [place], [place] [address] Social History Tobacco UseTypesPacks/DayYears UsedDateSmoking Tobacco: NeverSmokeless Tobacco: NeverAlcohol UseStandard Drinks/WeekCommentsNot Currently0 (1 standard drink = 0.6 oz pure alcohol)caffeine intake: 1-2 cups/dayPHQ-2AnswerDate RecordedPatient Health Questionnaire-2 Ubkuz080Sex and Gender InformationValueDate RecordedSex Assigned at BirthNot on fileLegal XkfDany6602/02/2023 7:36 PM EDT Gender IdentityNot on fileSexual OrientationNot on filedocumented as of this encounter Miscellaneous Notes * Telephone Encounter - Florencia Seaman MA - 10/24/2025 5:23 PM EST Message given * Telephone Encounter - Cynthia Roland - 10/24/2025 4:46 PM EST Good afternoon, this is Russell with [facility] was reaching out to see if Dr Leyva would follow a patient for home care You can reach me back at [phone], thank you. documented in this encounter Plan of Treatment DateTypeDepartmentCare Team (Latest Contact Info)Cwetzjcwntl63/14/2026 10:00 AM ESTOffice Visit [facility] Medicine [address] [place] [address] Tanna Leyva MD [address] [place], [place] [address] documented as of this encounter Goals GoalPatient Goal TypeAssociated ProblemsRecent ProgressPatient-Stated?Author Help patient manage antidepressant medication Care PlanPatient on antidepressant monitoring planNoTanna Leyva, MDdocumented as of this encounter Visit Diagnoses Not on filedocumented in this encounter Additional Health Concerns Active ProblemsNoted DateDiagnosed DatePatient on antidepressant monitoring plan 05/30/2024ssessmentNoted TimePHQ-9 Depression Total Score: 1004 10:00 AM EDTdocumented as of this encounter Care Teams Team MemberRelationshipSpecialtyStart DateEnd Date Tanna Leyva MD [address] [place] [address] PCP - GeneralFamily Medicine03/29/23 Ana Rosa Caceres NP [address] [place] [address] PCP - [employer]12/22/20documented as of this encounter
--- OUTSIDE RECORDS SUMMARY | 2025-10-31 07:37 | XMS_ITS | Encounter Summary ---
Author Organization [facility] Address [address] [facility] [place] [place] [address] Care Team Providers Care Manager Rn Case Name Role Phone Tanna Leyva MD Primary Care Provider [phone] Ana Rosa Caceres NP Unavailable Encounter Details DateTypeDepartmentCare Team (Latest Contact Info)Rrdxprgvjdx79/03/2025amboo flowsheet [facility] [address] [place] [address] Pippa Vincent NP [address] [place], [place] [phone] Social History Tobacco UseTypesPacks/DayYears UsedDateSmoking Tobacco: NeverSmokeless Tobacco: NeverAlcohol UseStandard Drinks/WeekCommentsNot Currently0 (1 standard drink = 0.6 oz pure alcohol)caffeine intake: 1-2 cups/dayPHQ-2AnswerDate RecordedPatient Health Questionnaire-2 Vwpwr142Sex and Gender InformationValueDate RecordedSex Assigned at BirthNot on fileLegal ZslJpbl9202/02/2023 7:36 PM EDT Gender IdentityNot on fileSexual OrientationNot on filedocumented as of this encounter Plan of Treatment DateTypeDepartmentCare Team (Latest Contact Info)Pevzlmzjrsl70/14/2026 10:00 AM ESTOffice Visit [facility] [address] [facility] [place] [address] Tanna Leyva MD [address] [facility] [place], [place] [phone] documented as of this encounter Goals GoalPatient [...] MemberRelationshipSpecialtyStart DateEnd Date Tanna Leyva MD [address] [facility] [place], [place] [address] PCP - GeneralFamily Medicine03/29/23 Ana Rosa Caceres NP [address] [facility] [place], [place] [phone] PCP - [employer]12/22/20documented as of this encounter
--- OUTSIDE RECORDS SUMMARY | 2025-10-31 07:37 | XMS_ITS | Encounter Summary ---
Author Organization [facility] Address [address] [facility] [place] [address] Care Team Providers Care Admin Prog Coord Name Role Phone Tanna Leyva MD Primary Care Provider [phone] Ana Rosa Caceres SALES RECRUITMENT SPECIALIST Unavailable Encounter Details DateTypeDepartmentCare Team (Latest Contact Info)Upsqvkkrusu01/10/2025Telephone [facility] [address] [place] [place] [address] Tanna Leyva MD [address] [place], [place] [address] Social History Tobacco UseTypesPacks/DayYears UsedDateSmoking Tobacco: NeverSmokeless Tobacco: NeverAlcohol UseStandard Drinks/WeekCommentsNot Currently0 (1 standard drink = 0.6 oz pure alcohol)caffeine intake: 1-2 cups/dayPHQ-2AnswerDate RecordedPatient Health Questionnaire-2 Gbted085Sex and Gender InformationValueDate RecordedSex Assigned at BirthNot on fileLegal UebVqjr4102/02/2023 7:36 PM EDT Gender IdentityNot on fileSexual OrientationNot on filedocumented as of this encounter Miscellaneous Notes * Telephone Encounter - VENANCIO BRAND - 10/30/2025 1:59 PM EST Daughter, Tanna, calling office. States she was contacted today by our office that pt missed his appt. She was unaware that pt had an appt. I notified daughter that it was scheduled for a hospital follow up and maybe the hospital scheduled it for the patient. Daughter states that patient was discharged to [place] for rehab. They will call/or have [facility] call to schedule follow up once he is discharged. documented in this encounter Plan of Treatment DateTypeDepartmentCare Team (Latest Contact Info)Wtpwktktvfe90/14/2026 10:00 AM ESTOffice Visit [facility] Medicine [address] [place] [address] Tanna Leyva MD [address] [place], [place] [phone] documented as of this encounter Goals GoalPatient [...] MemberRelationshipSpecialtyStart DateEnd Date Tanna Leyva MD [address] [place], [place] [phone] PCP - GeneralFamily Medicine03/29/23 Ana Rosa Caceres NP [address] [place] [address] PCP - [employer]12/22/20documented as of this encounter
--- OUTSIDE RECORDS SUMMARY | 2025-10-31 07:37 | XMS_ITS | Clinical Summary ---
Author Organization [facility] Address [address] [address] Care Team Providers Care Bell Valet Name Role Phone Unavailable Primary Care Provider Unavailabl e Social History Tobacco UseTypesPacks/DayYears UsedDateSmoking Tobacco: Never AssessedUT Safety & EnvironmentAnswerDate RecordedFear of Current or Ex-PartnerNot on file 01/12/2024Emotionally AbusedNot on file01/12/2024hysically AbusedNot on file 01/12/2024Sexually AbusedNot on file01/12/2024hysically or Sexually AbusedNot on file01/12/2024Sex and Gender InformationValueDate RecordedSex Assigned at BirthNot on fileLegal TwkCixd3907/06/2022 11:39 AM EDTGender IdentityNot on file Sexual OrientationNot on file Plan of Treatment Not on file
--- OUTSIDE RECORDS SUMMARY | 2025-10-31 07:38 | XMS_ITS | Encounter Summary ---
Author Organization [facility] Address [address] [place] [address] Phone Care Team Providers Care Sap Enterprise Portal Consultant Name Role Phone Tanna Leyva MD Primary Care Provider [phone] Encounter Details DateTypeDepartmentCare Team (Latest Contact Info)Yhrbiiknlma80/09/2025Scanned Document [facility] [address] [place] [address] Scanning, Generic Provider Social History Tobacco UseTypesPacks/DayYears UsedDateSmoking Tobacco: NeverSmokeless Tobacco: NeverAlcohol UseStandard Drinks/WeekCommentsNever0 (1 standard drink = 0.6 oz pure alcohol)Sex and Gender InformationValueDate RecordedSex Assigned at Not on fileLegal VnzNtbu5312/02/2022 9:24 AM ESTGender IdentityNot on fileSexual OrientationNot on filedocumented as of this encounter Plan of Treatment DateTypeDepartmentCare Team (Latest Contact Info)Qgumttomfbc23/17/2026 3:10 PM EDTOffice Visit [facility] [address] [facility] [address] [place] [address] Tessy Sequeira MD [address] [facility] [address] [place] [address] documented as of this encounter Procedures Procedure NamePriorityDate/TimeAssociated DiagnosisCommentsOUTSIDE IMAGING SCAN 10/29/2025 OUTSIDE LAB SCAN10/29/2025 OUTSIDE LAB SCAN10/29/2025 documented in this encounter Results * OUTSIDE LAB SCAN (10/29/2025) Narrative 10/29/2025 Ordered by an unspecified provider. Authorizing ProviderResult TypeResult StatusGeneric Provider ScanningOUTSIDE SCANFinal Result * OUTSIDE LAB SCAN (10/29/2025) Narrative 10/29/2025 Ordered by an unspecified provider. Authorizing ProviderResult TypeResult StatusGeneric Provider ScanningOUTSIDE SCANFinal Result * OUTSIDE IMAGING SCAN (10/29/2025)Anatomical RegionLateralityModalityOther Narrative 10/29/2025 Ordered by an unspecified provider. Authorizing ProviderResult TypeResult StatusGeneric Provider ScanningOUTSIDE SCANFinal Result documented in this encounter Visit Diagnoses Not on filedocumented in this encounter Additional Health Concerns AssessmentNoted TimeA fall risk assessment has been completed for the patient 10/02/2025 2:46 PM ESTdocumented as of this encounter Care Teams Team MemberRelationshipSpecialtyStart DateEnd Date Tanna Leyva MD [address] [place] [address] PCP - GeneralFamily Medicine07/05/24documented as of this encounter
--- OUTSIDE RECORDS SUMMARY | 2025-10-31 07:38 | XMS_ITS | Clinical Summary ---
Author Organization [facility] Address [address] [place] [address] Phone Care Team Providers Care Archery Instructor Name Role Phone Tanna Leyva MD Primary Care Provider [phone] Allergies Active AllergyReactionsCriticalityNoted FkaeAeqdwyiwBetmsuyrptXqhsExo03/24/2023 Medications MedicationSigDispense QuantityRefillsLast FilledStart DateEnd DateStatus midodrine [...] Problems ProblemNoted DateDiagnosed DateStage 3b chronic kidney mkxgnrq2010/02/2025MI 24.0-24.9, adult07/05/2024Never smoked any voifhqdya56/15/2024resence of Watchman left atrial appendage closure uhwkqn0103/22/2024-fib12/27/2023Sinus fupnlhhdtcv50/06/6164Fjihucewmvy50/06/2024High risk medication use12/27/2023t risk for falls10/14/2023 Resolved Problems ProblemNoted DateDiagnosed DateResolved DateAtrial fibrillation, unspecified typehronic atrial wjxzzesdjhwz28 Encounters DateTypeDepartmentCare BzzmPthjubaexbh39/09/2025Scanned Document [facility] [address] [place] [address] Scanning, Generic Provider 10/02/2025 2:40 PM ESTOffice Visit [address] [address] Tessy Sequeira MD Presence of Watchman left atrial appendage closure device; Persistent atrial fibrillation (Multi); High risk medication use; Stage 3b chronic kidney disease (Multi); Never smoked any substance; BMI 24.0-24.9, adult; At risk for falls Discharge Disposition: Home10/02/20254669Dpxnad06/09/2025Refill [address] [address] Tessy Sequeira MD Atrial fibrillation, unspecified type (Multi)from Last 3 Months Immunizations ImmunizationAdministration DatesNext DueFlu vaccine, quadrivalent, high-dose, preservative free, age 65y+ (FLUZONE)08/14/2025,10/28/2023Flu vaccine, trivalent, preservative free, HIGH-DOSE, age 65y+ (Fluzone)09/25/2024,10/28/2023 ,10/14/2020,10/30/2019,08/31/2018,12/19/2017Influenza, Svhcxzpowdy04/12/2015 Influenza, intradermal, quadrivalent, preservative free10/02/2015Influenza, seasonal, ujsqkrsztb42/14/2013Pneumococcal Conjugate PCV Pneumococcal conjugate vaccine, 13-valent (PREVNAR 13)04/08/2016Pneumococcal polysaccharide vaccine, [...] InformationValueDate RecordedSex Assigned at BirthNot on fileLegal NhbFles8812/02/2022 9:24 AM ESTGender IdentityNot on fileSexual OrientationNot on file Last Filed Vital Signs Vital SignReadingTime TakenCommentsBlood Ihgdwrqv422/8211 2:45 PM EST Yqhxt271410/02/2025 2:45 PM ESTTemperature--Respiratory Ayqr567903/23/2024 9:57 AM EDTOxygen Hymotebgmy64%03/23/2024 9:57 AM EDTInhaled Oxygen Concentration-- Wtszyy49.7 kg (189 lb)10/02/2025 2:45 PM FEOVzcpvl025 cm (6' 2 )10/02/2025 2:45 PM ESTBody Mass Index24.27112/02/2024 2:45 PM EST Plan of Treatment DateTypeDepartmentCare Team (Latest Contact Info)Vuvkkehjawn47/17/2026 3:10 PM EDTOffice Visit [facility] [address] [facility] [address] [place] [address] Tessy Sequeira MD [address] [facility] [address] [place] [address] Health MaintenanceDue DateLast DoneCommentsLipid Panel3CKD: Urine Protein Kobxgejls83/17/1962Zoster Vaccines (1 of 2)2RSV High Risk: (Elderly (60+) or Population) (1 - 1-dose 75+ series)2018Diabetes Ddoybqtfu70/26/17676103/16/2024TSH Level03/16/4COVID-19 Vaccine ( season)/08/2021, 01/21/2021, 12/24/2020Medicare Annual Wellness Visit (AWV)603/, 03/07/2024, 3DTaP/Tdap/Td Vaccines (3 - Td or Tdap)/03/2023, 06/01/2017Pneumococcal Vaccine Zygkvmvps56/19/2016, 10/17/2012, 10/17/2012, Additional history existsWelcome to Medicare RinjoGpdhofzmxkqe83/20/2025, 03/07/2024, 01/27/2023Influenza Vaccine Ikxiiupys86/24/2025, 09/25/2024, 10/28/2023, Additional history existsHIB VaccinesAged OutNo [...] LotDevice, Closure, 24mm Watchman Flx Laac - [id number] Implanted:Qty: 1 on 03/23/2024 [facility] Cardiac ImplantN/A: HeartAirstone [id number] 01/11/[id number] / / [id number] Procedures Procedure NamePriorityDate/TimeAssociated DiagnosisCommentsOUTSIDE LAB SCAN 10/29/2025 OUTSIDE LAB SCAN10/29/2025 OUTSIDE IMAGING SCAN10/29/2025 ECG 12-NDOBPpwahxm42/12/2025 2:40 PM EST Persistent atrial fibrillation (Multi) BASIC METABOLIC LOFLDPoricxh75/26/2024 11:58 AM EDT Paroxysmal atrial fibrillation (Multi) High risk medication use JEOCegqcen91/26/2024 11:58 AM EDT Paroxysmal atrial fibrillation (Multi) High risk medication use from Last 3 Months or Most Recently Relevant to Health Maintenance Results * OUTSIDE IMAGING SCAN (10/29/2025)Anatomical RegionLateralityModalityOther Narrative 10/29/2025 Ordered by an unspecified provider. Authorizing ProviderResult TypeResult StatusGeneric Provider ScanningOUTSIDE SCANFinal Result * OUTSIDE LAB SCAN (10/29/2025) Only the most recent of2 resultswithin the time period is included. Narrative 10/29/2025 Ordered by an unspecified provider. Authorizing ProviderResult TypeResult StatusGeneric Provider ScanningOUTSIDE SCANFinal Result * ECG 12 Lead (10/02/2025 2:40 PM EST)Specimen (Source)Anatomical Location / LateralityCollection Method / VolumeCollection TimeReceived Time Narrative [facility] - 10/02/2025 3:01 PM EST Normal sinus rhythm, normal ECG Authorizing ProviderResult TypeResult StatusTessy GRAHAMG ORDERABLES Final ResultPerforming OrganizationAddressCity/State/ZIP CodePhone Number [facility] * Thyroid Stimulating Hormone (03/16/2024 11:58 AM EDT)ComponentValueRef Range Test MethodAnalysis TimePerformed AtPathologist SignatureThyroid Stimulating Hormone3.070.44 - 3.98 mIU/L LAB IMMUNOASSAY METHOD 03/16/2024 5:14 PM ED[facility] LABSpecimen (Source)Anatomical Location / Laterality Collection Method / VolumeCollection TimeReceived TimeBloodVenous blood specimen / UnknownVenipuncture / Zcoqnfc8503/16/2024 11:58 AM EDT03/16/2024 11:58 AM EDT Narrative [facility] - 03/16/2024 5:14 PM EDT TSH testing is performed using different testing methodology at [facility]3] than at other [facility]. Direct result comparisons should only be made within the same method. Authorizing ProviderResult TypeResult StatusTessy FIGUEROA BLOOD ORDERABLESFinal ResultPerforming OrganizationAddressCity/State/[place] [address] * Basic Metabolic Panel (03/16/2024 11:58 AM EDT)ComponentValueRef RangeTest MethodAnalysis TimePerformed AtPathologist RthqjexzbQjdvelo1254 - 99 mg/dL LAB CHEMISTRY METHOD 03/16/2024 5:21 PM ED[facility] FIATnslgk465452 - 145 mmol/L LAB CHEMISTRY METHOD 03/16/2024 5:21 PM [facility] LABPotassium4.43.5 - 5.3 mmol/L LAB CHEMISTRY METHOD 03/16/2024 5:21 PM [facility] DVOZrnzslxm05770 - 107 mmol/L LAB CHEMISTRY METHOD 03/16/2024 5:21 PM [facility] WXQGstlmwvynes6440 - 32 mmol/L LAB CHEMISTRY METHOD 03/16/2024 5:21 PM [facility] LABAnion Fmx5397 - 20 mmol/L LAB CHEMISTRY METHOD 03/16/2024 5:21 PM [facility] LABUrea Imtfgsly612 - 23 mg/dL LAB CHEMISTRY METHOD 03/16/2024 5:21 PM [facility] LABCreatinine1.180.50 - 1.30 mg/dL LAB CHEMISTRY METHOD 03/16/2024 5:21 PM [facility] POPhRHD38>60 mL/min/1.73m*2 LAB CHEMISTRY METHOD 03/16/2024 5:21 PM [facility] LABComment: Calculations of estimated GFR are performed using the 2020 CKD-EPI Study Refit equation without therace variable for the IDMS-Traceable creatinine methods. https://jasn.asnjournals.org/content/early//ASN.8195340457 Calcium8.88.6 - 10.6 mg/dL LAB CHEMISTRY METHOD 03/16/2024 5:21 PM [facility] LABSpecimen (Source)Anatomical Location / Laterality Collection Method / VolumeCollection TimeReceived TimeBloodVenous blood specimen / UnknownVenipuncture / Sigvnjs2503/16/2024 11:58 AM EDT03/16/2024 11:58 AM EDT Narrative Authorizing ProviderResult TypeResult StatusHaruby FIGUEROA BLOOD ORDERABLESFinal ResultPerforming OrganizationAddressCity/State/ZIP CodePhone Number [facility] [address] [phone] from Last 3 Months or Most Recently Relevant to Health Maintenance Insurance Advance Directives For more information, please contact: [phone] (Available ) * Full Code (Latest Code Status on File) Date ActivatedDate InactivatedComments03/23/2024 1:45 PMQuestionAnswerCommentsPlan of Care:* Code Status Discussion Completed Decision Maker:* Patient * Full Code Date ActivatedDate InactivatedComments03/23/2024 9:25 AM03/23/2024 1:45 PMQuestion AnswerCommentsPlan of Care:* Code Status Discussion Completed Decision Maker:* Patient Care Teams Team MemberRelationshipSpecialtyStart DateEnd Date Tanna Leyva MD [address] [place] [address] [facility]
--- OUTSIDE RECORDS SUMMARY | 2025-10-31 07:38 | XMS_ITS | Encounter Summary ---
Author Organization [facility] Address [address] [place] [address] Care Team Providers Care Automotive Worker Foreman Name Role Phone Tanna Leyva MD Primary Care Provider [phone] Ana Rosa Caceres ROUGE PRESSER Unavailable Encounter Details DateTypeDepartmentCare Team (Latest Contact Info)Uftufsvgqmy57/03/2025Travel Social History Tobacco UseTypesPacks/DayYears UsedDateSmoking Tobacco: NeverSmokeless Tobacco: NeverAlcohol UseStandard Drinks/WeekCommentsNot Currently0 (1 standard drink = 0.6 oz pure alcohol)caffeine intake: 1-2 cups/dayPHQ-2AnswerDate RecordedPatient Health Questionnaire-2 Kazum884Sex and Gender InformationValueDate RecordedSex Assigned at BirthNot on fileLegal OayWpdf8702/02/2023 7:36 PM EDT Gender IdentityNot on fileSexual OrientationNot on filedocumented as of this encounter Plan of Treatment DateTypeDepartmentCare Team (Latest Contact Info)Smweruwgimd62/14/2026 10:00 AM ESTOffice Visit [facility] [address] [place] [address] Tanna Leyva MD [address] [place] [address] documented as of this encounter Goals GoalPatient Goal TypeAssociated ProblemsRecent ProgressPatient-Stated?Author Help patient manage antidepressant medication Care PlanPatient on antidepressant monitoring planTanna Sellers, MDdocumented as of this encounter Visit Diagnoses Not on filedocumented in this encounter Additional Health Concerns Active ProblemsNoted DateDiagnosed DatePatient on antidepressant monitoring plan 05/30/2024ssessmentNoted TimePHQ-9 Depression Total Score: 10003/07/2024 10:00 AM EDTdocumented as of this encounter Care Teams Team MemberRelationshipSpecialtyStart DateEnd Date Tanna Leyva MD [address] [place] [address] [facility] Ana Rosa Caceres NP [address] [place] [address] PCP - [employer]12/22/20documented as of this encounter
== END 2025-10-31 07:33 | disposition home or self-care (01) ==
LOC: RAD 07:32
PROVIDERS: Visit Provider Physician Assistant
DX: S62.522D Displaced fracture of distal phalanx of left thumb, subsequent encounter for fracture with routine healing (principal)
CPT/HCPCS: 73130